=== PATIENT | male | born 1940 | race Caucasian/White ===

== ENCOUNTER → 2020-03-02 14:52 | Outpatient (CLI) | payer MEDICARE, BC, SELFPAY ==
[2020-03-02 14:16] VITALS: BMI 31.9
[2020-03-02 17:15] LABS: ALB/GLOB Ratio 1.2 RATIO (0.9-2.4); AST(SGOT) 19 U/L (15-37); Alanine Aminotransfer ALT/SGPT 29 U/L (16-61); Albumin, Serum 3.8 g/dL (3.2-5.0); Alkaline Phosphatase 63 U/L (45-117); Anion Gap 4 (5-15); BUN 20 mg/dL (7-18); BUN/Creat Ratio 17.7 RATIO (10-20); Calcium,Total 8.6 mg/dL (8.5-10.1); Chloride 107 mmol/L (98-107); Cholesterol 163 mg/dL (200); Creatinine, Serum 1.13 mg/dL (0.70-1.30); EST Glomerular Filtration Rate 67 mL/min (>60); Est Glom Filt Rate - Afr Amer 81 mL/min (>60); Globulin 3.2 g/dL (2.2-4.2); Glucose 86 mg/dL (74-106); High Density Lipoprotein 46 mg/dL; Potassium 4.4 mmol/L (3.5-5.1); Sodium Level 138 mmol/L (136-145); Triglycerides 164 mg/dL; Very Low Density Lipoprotein 33 mg/dL (5-40)
== END ==
PROVIDERS: PCP Family Medicine; Referring Provider Family Medicine; Visit Provider Family Medicine
DX: I10 Essential (primary) hypertension (principal)
CPT/HCPCS: 36415; 80053; 80061

== ENCOUNTER → 2020-10-06 11:39 | Outpatient (CLI) | payer MEDICARE, BC, SELFPAY ==
[2020-10-06 10:54] VITALS: BMI 31.9
[2020-10-06 15:09] LABS: Absolute Lymphocyte Count 3.63 X10^3/uL (0.83-4.51); Absolute Neutrophil Count 3.4 X10^3/uL (2.0-7.7); Basophil# 0.05 X10^3/uL; Basophil% 0.6 % (0-1); Eosinophils% 9.3 % (0-5); Hematocrit 43.5 % (40-54); Hemoglobin 13.6 g/dL (13.0-16.5); Lymphocyte # 3.63 X10^3/ul (0.83-4.51); Mean Corp Hgb Conc 31.3 g/dL (32-36); Mean Corpuscular Volume 92.8 fL (80-94); Mean Platelet Vol. 9.6 fl (6.2-12.0); Monocyte# 0.72 X10^3/uL; Monocyte% 8.3 % (0-10); NRBC Flagged by Analyzer 0 % (0-5); Neutrophil # 3.43 X10^3/uL (2.7-7.7); Neutrophil % 39.7 % (47-70); Platelet Count 219 K/mm3 (150-450); RBC Distribution Width CV 13.4 % (11.6-14.6); RBC Distribution Width SD 45.6 fl (35.1-43.9); Red Blood Count 4.69 M/mm3 (4.6-6.2); White Blood Count 8.6 K/mm3 (4.4-11.0)
[2020-10-06 15:21] LABS: Anion Gap 5 (5-15); BUN 24 mg/dL (7-18); BUN/Creat Ratio 19.4 RATIO (10-20); Chloride 104 mmol/L (98-107); Creatinine, Serum 1.24 mg/dL (0.70-1.30); EST Glomerular Filtration Rate 60 mL/min (>60); Est Glom Filt Rate - Afr Amer 72 mL/min (>60); Glucose 98 mg/dL (74-106); Potassium 4.5 mmol/L (3.5-5.1); Sodium Level 137 mmol/L (136-145)
== END ==
PROVIDERS: PCP Family Medicine; Referring Provider Family Medicine; Visit Provider Family Medicine
DX: K21.9 Gastro-esophageal reflux disease without esophagitis (principal); R14.0 Abdominal distension (gaseous)
CPT/HCPCS: 36415; 80048; 85025

== ENCOUNTER → 2020-10-29 12:19 | Outpatient (CLI) | payer MEDICARE, BC, SELFPAY ==
[2020-10-06 10:54] VITALS: BMI 31.9
[2020-10-14 09:07] VITALS: BMI 31.9
[2020-10-29 12:29] VITALS: BP 93/62; PULSE 64; RESP 16; O2SAT 100; BMI 25.7
== END ==
PROVIDERS: PCP Family Medicine; Referring Provider Family Medicine; Visit Provider Family Medicine
DX: R06.00 Dyspnea, unspecified (principal); E78.5 Hyperlipidemia, unspecified

== ENCOUNTER 2020-11-03 06:11 | Day surgery (SDC) | payer MEDICARE, BC, SELFPAY ==
[2020-10-14 09:07] VITALS: BMI 31.9
[2020-10-29 12:29] VITALS: BMI 25.7
--- NOTE | 2020-11-02 | IMM_PTH ---
PATIENT: TARIK RIVERA LOC: EN U#:[id number] AGE/SX: 80/M ROOM: RE11/03/[address]: Dr. Jazzmine Yoo MD : 1940 BED: DIS: 11/03/2020 SPEC #: [id number] RECD: 11/04/20 11:12 STATUS: CHRISTAL REQ #: [id number] SONNY: 11/02/20 00:[address]: Jazzmine Yoo DEPT: IMMUNOHISTOCHEMISTRY RECD BY: Yesica Mccormack ENTERED: 11/04/20 11:13 SP TYPE: IMMUNO OTHR DR: Dr. Milan Chakraborty, DO Tissues: C - Pyloric antrum Procedures: H Pylori (initial) PHYSICIAN & [place] [id number] SPECIMEN INFORMATION: Tissue Source: C ? Prepyloric biopsy Clinical Info: GERD, weight loss Specimen Number: [id number] CPT code: 48071 METHODOLOGY: Deparaffinized sections of prefer/formalin-fixed tissue or PAP/DQ stained slides are incubated with monoclonal/polyclonal antibodies/oligonucleotide probes. Localization is made via biotin free immunoperoxidase method. Appropriate controls are performed and reacted as expected. Results on target cell population are indicated in the following table: RESULTS: ANTIBODY / CLONE RESULT Block C H Pylori (polyclonal) negative These tests were developed and their performance characteristics determined by [facility]. They may not have been cleared or approved by the U.S. Food and Drug Administration. The FDA has determined that such clearance or approval is not necessary. The above immunohistochemical/dualISH markers are ordered and reviewed by the Pathologist. INTERPRETATION: C. Prepyloric biopsy: Negative for Helicobacter pylori organisms. DEBBIE:keara 11/05/2020
[2020-11-03] VITALS (8 sets, daily range): BP systolic 92–137; BP diastolic 61–75; PULSE 53–121; RESP 16; TEMP 36.1–36.4; O2SAT 95–98; BMI 21.2
--- NOTE | 2020-11-03 | EGD_PTH ---
PATIENT: TARIK RIVERA LOC: EN U#:[id number] AGE/SX: 80/M ROOM: RE11/03/[address]: Dr. Jazzmine Yoo MD : 1940 BED: DIS: 11/03/2020 SPEC #: [id number] RECD: 11/03/20 07:49 STATUS: CHRISTAL REQ #: [id number] SONNY: 11/03/20 00:[address]: Jazzmine Yoo DEPT: SURGICAL PATHOLOGY RECD BY: Yesica Mccormack ENTERED: 11/03/20 09:17 SP TYPE: EGD BIOPSY OT DR: Dr. Milan Chakraborty, DO Tissues: A - Esophageal mucous membrane B - Gastric mucous membrane C - Gastric mucous membrane Procedures: Frozen Section (charge) Special Stain Group II Surgery Specimen Level IV Alcian Blue/PAS (control) HEADER OPERATION: EGD ([facility]) PRE-OP DIAGNOSIS: GERD, weight loss TISSUE SUBMITTED: A - GE junction biopsy, FS, B - GE junction biopsy permanent, C - Prepyloric biopsy permanent FROZEN SECTION DIAGNOSIS A. GE junction, biopsy: Negative for malignancy. Ulceration and acute and chronic inflammation. :keara 11/03/2020 MICROSCOPIC DIAGNOSIS A. GE junction, biopsy: Fragments of gastroesophageal mucosa with acute and chronic inflammation. Negative for intestinal metaplasia (goblet cell metaplasia). Negative for carcinoma. See comment. B. GE junction, biopsy: Fragments of squamous epithelium with changes consistent with gastroesophageal reflux disease. Detached scant fragment of gastric epithelium, negative for intestinal metaplasia (goblet cell metaplasia). See comment. C. Prepyloric biopsy: Moderate chronic gastritis. See microscopic description and comment. SJ:keara 11/04/2020 COMMENT A. Alcian blue/PAS stain with matched control is used in the evaluation of the specimen. Mild increase of eosinophils are noted suggestive of eosinophilic esophagitis. B. Alcian blue/PAS stain with matched control is used in the evaluation of the specimen. Mild increase of eosinophils are noted suggestive of eosinophilic esophagitis. C. The results of immunohistochemistry for Helicobacter pylori will be reported separately ([id number]). Correlation with clinical, endoscopic findings and appropriate follow up are necessary. MICROSCOPIC DESCRIPTION Slides are reviewed. C. The specimen shows fragments of gastric mucosa with chronic inflammatory cell infiltrates in the lamina propria consisting of lymphocytes and plasma cells, consistent with moderate chronic gastritis. GROSS DESCRIPTION A - Received fresh for frozen section diagnosis labeled with the patient's name is a specimen designated GE junction biopsy. The specimen consists of two irregular fragments of vázquez soft tissue that in aggregate measure 0.5 x 0.2 x 0.1 cm. The specimen is totally submitted for frozen section diagnosis in one cassette. B - Received in fixative is one container labeled with the patient's name and designated GE junction biopsy, permanent. The specimen consists of multiple irregular fragments of light vázquez soft tissue that in aggregate measure 0.8 x 0.5 x 0.1 cm. The specimen is totally submitted in one cassette. C - Received in fixative is one container labeled with the patient's name and designated prepyloric biopsy. The specimen consists of one irregular fragment of light vázquez soft tissue that measures 0.3 x 0.3 x 0.1 cm. The specimen is totally submitted in one cassette. / SJ:rg 11/03/20 TC:3 CPT: 69646 x3, 54631, 72416 x2
[2020-11-03] MEDS: Lactated Ringers 1,000 ML 100 ML IV (06:48)
--- NOTE | 2020-11-03 07:26 | PCM.HP.BLA ---
History and Physical Date of Admission: 11/03/20 Date of Service: 10/14/20 MR#:[id number] Acct:[id number] Name: TARIK RIVERA :1940 Age/Sex: 80/M Provider:Dr. Jazzmine Yoo MD Location:[facility] Status:Signed Rep #:[id number] Intake Vital Signs 10/14/20 09:05 10/14/20 09:07 Height 6 ft 1 in Weight: 200 lb BMI 26.4 31.9 BP 114/78 Blood Pressure Location Rt brachial Position Sitting Respiration 16 Pulse 67 Pulse Source Monitor Temp 97.3 F L Temp Source Temporal Pulse Oximetry (%) 99 Oxygen Delivery Method room air Intake Visit Reasons: EGD, WEIGHT LOSS Chief Complaint: Reflux and wt loss Public Transit Specialist Required: No Is patient in pain?: No Allergies No Known Allergies Allergy (Verified 10/14/20 09:06) Medications diphenhydramine HCl 50 mg capsule 50 mg PO QHS PRN cap 03/18/19 [History Confirmed 10/14/20] apixaban 5 mg tablet 5 mg PO BID #180 tab 10/21/19 [Rx Confirmed 10/14/20] metoprolol tartrate 50 mg tablet 50 mg PO BID #180 tab 10/21/19 [Rx Confirmed 10/14/20] simvastatin 20 mg tablet 20 mg PO QPM #90 tab 10/21/19 [Rx Confirmed 10/14/20] lisinopril 5 mg tablet 5 mg PO QDAY #90 tab 03/02/20 [Rx Confirmed 10/14/20] omeprazole 40 mg capsule,delayed release 40 mg PO DAILY #90 cap 10/06/20 [Rx Confirmed 10/14/20] PFSH Medical History (Updated 10/06/20 @ 12:[address] Milan Chakraborty DO) Essential hypertension Hyperlipemia Paroxysmal A-fib Surgical History (Updated 10/14/20 @ 09:03 by Mandy Guzman) Cataracts, bilateral History of bilateral hip replacements History of right knee joint replacement history of right testicle removed History of tonsillectomy Normal colonoscopy Family History (Updated 10/14/20 @ 09:04 by Mandy Guzman) Father Heart disease Mother Heart disease Sister Breast cancer Brother CVA (cerebral vascular accident) Social History Smoking Status: Former smoker how long ago did patient quit smokin alcohol intake: current alcohol intake frequency: 0-2 drinks per day Alcohol type: hard liquor substance use type: does not use caffeine: No what type of physical activity do you participate in: walking, bicycling and weight training frequency: 3-4 times per week HPI HPI HPI: TARIK RIVERA, is a 80 M who presents to the office today for reflux/weight loss. Patient states since April he is lost about 25 pounds. Patient also noticed increased reflux symptoms at that time patient did stop his 1-2 alcoholic drinks daily as he read that this could make this worse. Patient's never had previous EGD. Patient did try Nexium 20 mg p.o. [id number] daily 1 month ago and currently is put on omeprazole 40 mg p.o. daily by his PCP. Patient has not noticed much change with either of these. Patient states he eats some breakfast and lunch but does not really eat dinner as this has helped him be able to sleep he states he has increased belching/flatus and he will still get some bloating which caused some uncomfortable feeling in his abdomen. Patient states currently he may be eating a bit better than he was previously. Patient has had both doses of the Covid vaccine. Patient's last colonoscopy was about 3 years ago patient states he has 1 about every 3 years he has had precancerous polyps removed at that time. Patient is on Eliquis due to A. fib. Patient did have an episode of double vision while waiting in the office which resolved within minutes. Patient denies ever having this issue previously ROS General General: Yes weight change; No appetite, fatigue, colon cancer, breast cancer or weakness HEENT HEENT: No difficulty swallowing, eye injury, eye surgery, swollen glands or hoarseness Endo Endocrine: No thyroid disease, diabetes mellitus, thyroid cancer, Hair loss, heat intolerance or cold intolerance Skin Skin: No rash or changing moles Musc Musculoskeletal: No back problems, arthritis, rheumatoid arthritis, gout or joint pain Cardio Cardiovascular: Yes atrial fibrillation and high blood pressure; No murmur, pacemaker, heart disease, heart attack, heart stent, palpitations, shortness of breat with exertion or chest pain Psych Psychiatric: No depression, anxiety or hearing voices Resp Respiratory: No shortness of breath, No sleep apnea, No cough, No COPD, No asthma, No emphysema and No wheezing Gastro Gastrointestinal: No abdominal pain, No nausea or vomiting, No diarrhea, No constipation, No blood in stool, Yes acid reflux, No hemorrhoids, No ulcers, No gallbladder problem and No black,tarry stools Fadi Hematologic: Yes blood thinners, No blood disorders, No bleeding, No anemia and No blood clots Neuro Neurologic: No weakness Exam Const General: cooperative, healthy appearing, comfortable and no acute distress Neck Neck: normal visual inspection Resp Effort & Inspection: normal respiratory effort Cardio Rate: regular rate GI Inspection: non-distended Palpation: soft, no guarding and nontender Skin General: no rashes or lesions noted Neuro General: patient oriented x3 Psych Affect: normal affect COVID (Procedure Consent) Procedure Criteria Procedure Criteria: Yes Elective The surgeon/proceduralist and patient have discussed in detail the risk of exposure to and/or potential harm posed by the COVID-19 virus with having a surgery/procedure at this time versus the risk of delaying the surgery/procedure. It is not possible to know either the risk of delaying the surgery or procedure or chance of getting an infection with perfect accuracy, but a joint decision was made between the patient and the surgeon/proceduralist to proceed at this time with the scheduled surgery/procedure as indicated on the consent form. Assessment and Plan Assessment and Plan (1) Gastroesophageal reflux disease: Status: Acute (2) Weight loss, non-intentional: Status: Acute (3) Double vision with both eyes open: Plan - Dr. Jazzmine Yoo MD: Did offer patient colonoscopy as well have patient elected to just have the EGD as he is had multiple colonoscopies since last one was 3 years ago. Patient states he was not eating as much due to reflux and heartburn. I have discussed the above with the patient. I have offered the patient EGD for evaluation. Schedule on 11/03 per patient request I have explained the risks/benefits of the procedure and described the procedure. I have discussed the risks with the patient, including but not limited to: infection, bleeding, perforation of the GI tract requiring emergency surgery, inability to complete the procedure, injury to any internal organs, complications of anesthesia, etc. - the patient understands and agrees to proceed. I have answered all the patient's questions to the patient's satisfaction and the patient has no further questions. The patient has been given instructions for the colon cleansing preparation. Did recommend patient if he does have another episode of double vision to check with his PCP as patient only had this episode for minutes and then it resolved in the office. Patient states he only had coffee this morning.. Jazzmine Yoo M.D. Pager: [phone] [facility] [address] [place] [address], [facility], [address] [place] [id number] Office: [phone] Plan Details Other Orders: Orders: EGD 10/14/20 Coding Level of Care Code Off vis,new,level 3 Diagnoses Gastroesophageal reflux disease K21.9 Weight loss, non-intentional R63.4 Double vision with both eyes open H53.2 10/15/20 0907<Electronically signed by Jazzmine Yoo MD>Date Jazzmine Yoo MD
--- NOTE | 2020-11-05 15:09 | OP.CCLET_ITS ---
11/03/2020 Milan Chakraborty Re : Upper GI endoscopy procedure for Tyler Holland Dear Dr. Chakraborty This procedure was performed on Tuesday, November 03, 2020. My impressions and recommendations are as follows: Impressions : - Z-line variable, 42 cm from the incisors. Biopsied. - A large amount of food (residue) in the stomach. - Erythematous mucosa in the prepyloric region of the stomach. Biopsied. Recommendations : - Discharge patient to home. - Resume previous diet. - Continue present medications. - Await pathology results. - Repeat upper endoscopy at appointment to be scheduled because the preparation was poor. - depending on bx results. may also need gastric emptying study My findings are described in the full procedure note, which is enclosed. If I can be of further assistance, please feel free to contact me at Doctor phone number(s): , Work: . Sincerely, MD Jazzmine Dixon MD 11/03/2020 8:00:52 AM This report has been signed electronically.
--- NOTE | 2020-11-05 15:09 | OP.EGD_ITS ---
Patient Name: Tyler Holland Procedure Date: 11/03/2020 7:23 AM Date of : 1940 Age: 80 Procedure: Upper GI endoscopy Indications: Suspected esophageal reflux, Weight loss Providers: Jazzmine Yoo MD Referring MD: Milan Chakraborty Medicines: Monitored Anesthesia Care Patient Profile: This is a 80 year old male. Complications: No immediate complications. Procedure: Pre-Anesthesia Assessment: - Prior to the procedure, a History and Physical was performed, and patient medications and allergies were reviewed. The patient's tolerance of previous anesthesia was also reviewed. The risks and benefits of the procedure and the sedation options and risks were discussed with the patient. All questions were answered, and informed consent was obtained. Prior Anticoagulants: The patient has taken Eliquis (apixaban), last dose was 2 days prior to procedure. ASA Grade Assessment: Per anesthesia. After reviewing the risks and benefits, the patient was deemed in satisfactory condition to undergo the procedure. After obtaining informed consent, the endoscope was passed under direct vision. Throughout the procedure, the patient's blood pressure, pulse, and oxygen saturations were monitored continuously. The gastroscope was introduced through the mouth, and advanced to the prepyloric region, stomach. The upper GI endoscopy was technically difficult and complex due to poor endoscopic visualization. The patient tolerated the procedure well. Scope In: 7:35:39 AM Scope Out: 7:47:26 AM Total Procedure Duration Time 0 hours 11 minutes 47 seconds Findings: The Z-line was variable and was found 42 cm from the incisors. Biopsies were taken with a cold forceps for histology. bx for frozen and permanent taken A large amount of food (residue) was found in the gastric fundus. Unable to see well due to fibrous debris at pylorus and large amount at fundus moderately erythematous mucosa was found in the prepyloric region of the stomach. Biopsies were taken with a cold forceps for histology. Biopsies were taken with a cold forceps for Helicobacter pylori cultures. Impression: - Z-line variable, 42 cm from the incisors. Biopsied. - A large amount of food (residue) in the stomach. - Erythematous mucosa in the prepyloric region of the stomach. Biopsied. Recommendation: - Discharge patient to home. - Resume previous diet. - Continue present medications. - Await pathology results. - Repeat upper endoscopy at appointment to be scheduled because the preparation was poor. - depending on bx results. may also need gastric emptying study Procedure Code(s): --- Professional --- 11687, 52, Esophagogastroduodenoscopy, flexible, transoral; with biopsy, single or multiple Diagnosis Code(s): --- Professional --- K22.8, Other specified diseases of esophagus K31.89, Other diseases of stomach and duodenum R63.4, Abnormal weight loss CPT copyright 2017 [employer]. All rights reserved. The codes documented in this report are preliminary and upon drywall stripper helper review may be revised to meet current compliance requirements. MD Jazzmine Dixon MD 11/03/2020 8:00:52 AM This report has been signed electronically. Number of Addenda: 0 Note Initiated On: 11/03/2020 7:23 AM
== END 2020-11-03 08:57 ==
LOC: EN 06:14 → AC 06:55
PROVIDERS: PCP Family Medicine; Referring Provider Family Medicine; Visit Provider Surgery
PROC: 0DJ08ZZ Inspection of Upper Intestinal Tract, Via Natural or Artificial Opening Endoscopic (ICD-10-PCS; CPT 43235; principal; 2020-11-03 07:25)
DX: K22.8 Other specified diseases of esophagus (principal); R63.4 Abnormal weight loss; K31.89 Other diseases of stomach and duodenum; H53.2 Diplopia; I10 Essential (primary) hypertension; E78.5 Hyperlipidemia, unspecified; I48.0 Paroxysmal atrial fibrillation; Z96.651 Presence of right artificial knee joint; Z87.891 Personal history of nicotine dependence; K21.9 Gastro-esophageal reflux disease without esophagitis
CPT/HCPCS: 43239; 88305; 88313; 88331; 88342; J7120; J2405

== ENCOUNTER → 2020-11-16 06:32 | Outpatient (CLI) | payer MEDICARE, BC, SELFPAY ==
[2020-11-08 09:01] VITALS: BMI 24.9
--- NOTE | 2020-11-16 18:23 | STRESSREP ---
Stress Test Report Exercise myocardial perfusion stress test. 80-year-old man with a history of atrial fibrillation. Stress protocol: Resting EKG demonstrates atrial fibrillation with a rate of 81 bpm resting blood pressure is 114/68 mmHg. The patient exercised according to the regular Dave protocol for total duration of 3 minutes. The maximum heart rate attained was 173 bpm which was 122% of maximum predicted heart rate the maximum workload was 4.6 metabolic equivalents. At rest there were no ST or T wave changes noted suggest ischemia at peak infusion and exercise nonspecific ST changes were noted. No clinical angina was noted the test was terminated due to shortness of breath. The final blood pressure was 114/68 mmHg. Myocardial perfusion protocol. 11.1 mCi of technetium 99m sestamibi was injected at rest. The patient exercised according to regular Dave protocol for 3 minutes and at peak exercise 32.6 mCi of technetium 99m sestamibi was injected stress images were obtained stress and rest images were reconstructed and compared in the short axis vertical long and horizontal long axis. Gated images were also obtained to Perfusion SPECT analysis: Review of the stress images demonstrate normal uptake of tracer noted in all areas of the myocardium. The resting images similarly demonstrate normal uptake of tracer noted in all areas of the myocardium. No areas of reversibility are noted suggest ischemia no previous infarct is noted. Gated SPECT analysis: The gated ejection fraction is noted to be 61%. Conclusion: Exercise stress test with no EKG criteria for ischemia at a low workload. Atrial fibrillation noted. Mild to moderate function aerobic impairment. Nuclear images demonstrating no obvious ischemia present.
== END ==
PROVIDERS: PCP Family Medicine; Referring Provider Nurse Practitioner Family; Visit Provider Nurse Practitioner Family
DX: I48.0 Paroxysmal atrial fibrillation (principal); I10 Essential (primary) hypertension; R06.00 Dyspnea, unspecified; I20.8 Other forms of angina pectoris
CPT/HCPCS: 78452; 93017; A9500; A4216

== ENCOUNTER → 2020-11-25 13:06 | Outpatient (CLI) | payer MEDICARE, BC, SELFPAY ==
[2020-11-08 09:01] VITALS: BMI 24.9
[2020-11-23 16:09] VITALS: BMI 24.9
--- NOTE | 2020-11-25 13:07 | ECHOCS_ITS ---
Version 2 Reason For Study: DYSPNEA/SOB Procedure This was a 2D Doppler, Color Flow transthoracic echocardiogram. The study was technically difficult. Exam performed in department. Left Ventricle Normal LV size. Left ventricular systolic function is normal. The estimated ejection fraction is 55 %. No regional wall motion abnormalities noted. Right Ventricle Normal RV size. Normal systolic function. Atria The left atrium is moderately enlarged. Normal right atrium. Bubble contrast study negative for right to left interatrial shunt. Mitral Valve Posterior leaflet mitral valve prolapse. Mild-Moderate (1-2+) eccentric mitral valve insufficiency. Tricuspid Valve Normal tricuspid valve. Mild tricuspid valve insufficiency. Aortic Valve Trisinus/trileaflet aortic valve. Mild focal aortic valve calcification. Pulmonic Valve Normal pulmonic valve. Mild (1+) pulmonic valve insufficiency. Great Vessels Normal aortic root. The pulmonary artery is normal size. Normal inferior vena cava. Pericardium/Pleural No pericardial effusion. Medication 22 gauge I.V. with prn adaptor inserted into right arm. Diluted definity 5ml given slow IV push to enhance endocardial definition. MMode/2D Measurements & Calculations LVIDd: 4.7 cm IVSd: 0.97 cm Ao root diam: 3.3 cm LVIDs: 3.7 cm LVPWd: 1.0 cm RVDd: 4.0 cm FS: 21.4 % LAV(MOD-bp): 90.7 ml LVAd ap4: 37.1 cm2 SV(MOD-sp4): 65.8 ml LAV(MOD-bp) Indexed: 42.4 ml/m2 LVLd ap4: 8.4 cm LAV(MOD-sp2): 78.9 ml EDV(MOD-sp4): 133.5 ml LAV(MOD-sp4): 88.8 ml EDV(sp4-el): 139.0 ml LVAs ap4: 24.3 cm2 LVLs ap4: 7.5 cm ESV(MOD-sp4): 67.7 ml ESV(sp4-el): 66.7 ml EF(MOD-sp4): 49.3 % EF(sp4-el): 52.0 % SV(sp4-el): 72.3 ml LA A4 area: 26.1 cm2 LA dimension(2D): 5.6 cm RA A4 area: 20.3 cm2 Doppler Measurements & Calculations MV E max jayme: 100.8 cm/sec Ao V2 max: 141.4 cm/sec LV V1 max: 79.8 cm/sec Ao max P.0 mmHg LV V1 max P.6 mmHg PA V2 max: 97.5 cm/sec TR max jayme: 277.1 cm/sec PI dec slope: 181.8 cm/sec2 TR max P.7 mmHg ECHO/Echo Complete W/ Contrast Interpretation Summary Normal LV size. Left ventricular systolic function is normal. The estimated ejection fraction is 55 %. Bubble contrast study negative for right to left interatrial shunt. Posterior leaflet mitral valve prolapse. Mild-Moderate (1-2+) eccentric mitral valve insufficiency. The left atrium is moderately enlarged. Ordering Physician: August Villagomez/Haider Sanchez Referring Physician: JOSEPH ARAUZ Performed By: Susan Cormier RDCS
[2020-11-25 17:42] LABS: BNP,B-Type NATRIURETIC PEPTIDE 219.6 pg/mL (0-100)
== END ==
PROVIDERS: PCP Family Medicine; Referring Provider Nurse Practitioner Family; Visit Provider Nurse Practitioner Family
DX: I48.0 Paroxysmal atrial fibrillation (principal); R06.00 Dyspnea, unspecified; I10 Essential (primary) hypertension; E78.2 Mixed hyperlipidemia
CPT/HCPCS: 36415; 83880; 93225; 93226; 93306; Q9957; A4216; C8929; J3490

== ENCOUNTER → 2020-12-07 11:59 | Outpatient (CLI) | payer MEDICARE, BC, SELFPAY ==
[2020-12-02 14:32] VITALS: BMI 24.9
--- NOTE | 2020-12-07 12:12 | NM_ITS ---
CLINICAL: 80-year-old male with history of abdominal bloating and clinical gastroparesis. SEMI-SOLID PHASE 99m Tc SULFUR COLLOID GASTRIC EMPTYING STUDY COMPARISON: None available FINDINGS: The patient was administered 1.0 mCi of 99m Tc sulfur colloid mixed with oatmeal and consumed per os. Image acquisitions in the anterior-posterior projections for a total of 60 minutes. There is prompt visualization of the stomach. There is no gastroesophageal reflux identified. There is no definitive emptying visualized. The T ? linear fit was calculated to be > 400 minutes, (Normal: 12-56 minutes). NM/Gastric Emptying Study IMPRESSION: 1. MARKEDLY ABNORMAL 99m Tc sulfur colloid semi-solid phase (oatmeal) gastric emptying imaging examination. A. There is significant and severe delayed semi-solid phase gastric emptying compared to normal controls with no definitive emptying visualized. (Georgie et al, J Nucl Med Tech 38: 186, 2010). Electronically Signed: Tonny Arrington DO at 22:37 EDT Tel , Service support ,
== END ==
PROVIDERS: PCP Family Medicine; Referring Provider Surgery; Visit Provider Surgery
DX: K31.89 Other diseases of stomach and duodenum (principal)
CPT/HCPCS: 78264; A9541

== ENCOUNTER → 2020-12-08 11:41 | Outpatient (CLI) | payer MEDICARE, BC, SELFPAY ==
[2020-12-02 14:32] VITALS: BMI 24.9
--- NOTE | 2020-12-08 11:42 | CT_ITS ---
STUDY: CT ABDOMEN AND PELVIS WITH CONTRAST REASON FOR EXAM: Male, 80 years old. Delayed gastric emptying/ food retained in stomach RADIATION DOSAGE (If Supplied By Facility): CTDIvol = ( 17.50 ) mGy, DLP = ( 998.30 ) mGycm TECHNIQUE: Transaxial images were obtained from the dome of the diaphragm to the symphysis pubis with oral contrast. Oral and amp; IV Gastrografin and amp; 100mL Isovue-300 was administered. Sagittal and coronal images were reconstructed. Individualized dose optimization techniques were used for this CT. COMPARISON: None. FINDINGS: The visualized lung bases are unremarkable. The visualized portions of the heart are within normal limits. There is decreased attenuation of the liver consistent with steatosis. There is focal dilatation of the common bile duct with a transverse dimension of 1.7 cm. Normal spleen. Normal pancreas. Normal bilateral adrenal glands. Normal right kidney. Normal left kidney. Moderate degree of gastric dilatation with air-fluid retained food particles and air. There is evidence of a 5 cm x 3.8 cm soft tissue mass in the region of the pylorus of the stomach. Normal small intestine. There are multiple colonic diverticula consistent with diverticulosis. The appendix is visualized and appears normal. There is diffuse atherosclerotic calcification of the abdominal aorta and its major visceral branches, without a demonstrated aneurysm. Normal inferior vena cava. Normal retroperitoneum. Normal urinary bladder. Normal abdominal wall. There are diffuse degenerative changes of the visualized lumbar spine. The patient is status post bilateral hip replacement. CT/Abdomen/Pelvis WITH Contrast IMPRESSION: Marked degree of gastric dilatation with residual fluid and food particles down to the region of the pylorus. There is a 5 cm x 3.7 soft tissue mass in the lower region. Dilated common bile duct. Fatty attrition of the liver. Electronically Signed: Edmund Sauceda MD at 13:27 EDT , Service support ,
[2020-12-08 13:06] LABS: CREATININE FINGERSTICK 1.3 mg/dL (0.70-1.30)
== END ==
PROVIDERS: PCP Family Medicine; Referring Provider Surgery; Visit Provider Surgery
DX: K30 Functional dyspepsia (principal); K31.89 Other diseases of stomach and duodenum
CPT/HCPCS: 74177; Q9967; A4216

== ENCOUNTER 2020-12-08 13:50 | Emergency (ER) | payer MEDICARE, BC, SELFPAY ==
[2020-12-02 14:32] VITALS: BMI 24.9
[2020-12-08 13:51] VITALS: BP 116/76; PULSE 94; RESP 15; TEMP 36.4; O2SAT 96; BMI 23.7
[2020-12-08 13:52] VITALS: BP 116/76; PULSE 94; RESP 15; TEMP 36.4; O2SAT 96
--- NOTE | 2020-12-08 14:30 | NURSING ---
CALLED HIGHLAND DAHIANA , AT [facility]
--- NOTE | 2020-12-08 14:30 | NURSING ---
CALLED [facility] TALKED TO DR MICHAEL THEY ARE FULL
--- NOTE | 2020-12-08 14:37 | EDS_ITS ---
HPI History of Present Illness Chief Complaint: Abd Pain Narrative Narrative: Patient presents with abdominal pain he has not had abdominal pain for the past 2 weeks, he went to see surgery and had an outpatient CT which showed 5 x 3.7 cm soft tissue mass in the lower region of the pylorus with a marked degree of gastric dilation with residual fluid and food particles. 1 he was sent here to be transferred for further surgical care, apparently we do not have the capabilities for this at this facility. [facility] Medical History Alcohol use Cancer Cardiology follow-up encounter Essential hypertension Former smoker Gastric reflux High cholesterol History of edema History of rheumatic fever History of stress test Hx of echocardiogram Hyperlipemia Paroxysmal A-fib Shortness of breath on exertion Wears glasses Wears hearing aid Weight loss Home Medications apixaban 5 mg tablet 5 mg PO BID #180 tab 10/20/20 [Rx Last Taken Unknown] simvastatin 20 mg tablet 20 mg PO QPM #90 tab 10/20/20 [Rx Last Taken 11/03/20] metoprolol tartrate 50 mg PO BID 10/26/20 [History Last Taken 11/03/20] pantoprazole 40 mg tablet,delayed release 40 mg PO DAILY #30 tab 12/02/20 [Rx Last Taken Unknown] diphenhydramine HCl 50 mg PO QHS 12/08/20 [History Last Taken Unknown] Allergy/AdvReac Type Severity Reaction Status Date / Time No Known Allergies Allergy Verified 12/08/20 13:53 Family History Father Heart disease Mother Heart disease Sister Breast cancer Brother CVA (cerebral vascular accident) Surgical History Cataracts, bilateral History of bilateral hip replacements History of endoscopy (~11/2020) History of right knee joint replacement history of right testicle removed History of tonsillectomy Normal colonoscopy Social History Smoking Status: Former smoker how long ago did patient quit smokin years ago alcohol intake: former details: Quit in May 2020 substance use type: does not use caffeine: No what type of physical activity do you participate in: walking, bicycling and weight training frequency: 3-4 times per week ROS ROS ED ROS Narrative Past medical history: Reviewed, includes arthritis, reflux disease, A. fib on apixaban, hypercholesterolemia, hypertension Medications: Reviewed Social history: Noncontributory Review of systems: All systems negative except as indicated General: No fever Eyes: No visual changes ENT: No upper airway congestion, normal voice Neck: No neck pain Cardiovascular: No chest pain Respiratory: No shortness of breath or cough Gastrointestinal: Abdominal pain mostly epigastric with some nausea and vomiting. Genitourinary: No dysuria Musculoskeletal: Denies myalgias no difficulty with ambulation Skin: No rash Neurological: No memory loss, confusion or any focal weakness Psych: No recent behavioral changes Hematologic: No easy bleeding or easy bruising EXAM Physical Exam Narrative Exam Narrative: Physical exam General: Patient is relatively comfortable sitting in bed Head: Normocephalic, Atraumatic Eyes: Conjunctiva not pale ENT: Moist mucous membranes Neck: Supple, Nontender, No lymphadenopathy Cardiovascular: Regular rate, Regular rhythm Respiratory: No distress, CTA bilaterally Abdomen: Soft minimal epigastric tenderness, it is nondistended. There is no guarding or rebound. Back: Nontender, Normal Inspection. Negative for: CVA tenderness Extremities: Nontender, No edema Skin: Normal color, No rash Neurological: Alert, Normal Strength, Normal Sensation Const Vital Signs: 12/08/20 13:51 12/08/20 13:52 Temperature 97.6 F L 97.6 F L Temperature Source Temporal Temporal Pulse Rate 94 94 Respiratory Rate 15 15 Blood Pressure 116/76 116/76 Blood Pressure Mean 89 89 Pulse Ox 96 96 Oxygen Delivery Method Room Air Room Air MDM MDM MDM Narrative Medical decision making narrative: I discussed with [facility] and they accepted the patient. He will be safely transferred there. NG tube will be placed. Discharge Plan Triage Chief Complaint: Abd Pain ED Provider: Nitin Espinoza Dx/Rx/DC Orders Prescriptions: No Action pantoprazole 40 mg tablet,delayed release (DR/EC) 40 mg PO DAILY Qty: 30 RF: 3 metoprolol tartrate 50 mg tablet 50 mg PO BID RF: 0 diphenhydramine HCl 50 mg Tablet 50 mg PO QHS RF: 0 apixaban 5 mg tablet 5 mg PO BID Qty: 180 RF: 3 Hold Instructions: Resume on 11/04/20. simvastatin 20 mg tablet 20 mg PO QPM Qty: 90 RF: 3 Primary Care Provider: Milan Chakraborty
--- NOTE | 2020-12-08 14:49 | NURSING ---
DR HOLGUIN REQUESTED ED TO ED. DR MICHAEL TALKING TO ER DOCTOR
--- NOTE | 2020-12-08 15:12 | NURSING ---
CALLED [facility], ETA IS 90 TO 2 HRS. ASKED TO OUTSOURCE.
[2020-12-08] MEDS: Lidocaine 4% 5 ML Ampul 2 ML INHALATION (15:19)
[2020-12-08 15:23] LABS: Absolute Lymphocyte Count 2.81 X10^3/uL (0.83-4.51); Absolute Neutrophil Count 4.5 X10^3/uL (2.0-7.7); Basophil# 0.03 X10^3/uL; Basophil% 0.3 % (0-1); Eosinophils% 5.7 % (0-5); Hematocrit 40.2 % (40-54); Hemoglobin 12.9 g/dL (13.0-16.5); Lymphocyte # 2.81 X10^3/ul (0.83-4.51); Mean Corp Hgb Conc 32.1 g/dL (32-36); Mean Corpuscular Hgb 28.9 pg (27.0-32.0); Mean Corpuscular Volume 90.1 fL (80-94); Mean Platelet Vol. 8.8 fl (6.2-12.0); Monocyte# 0.96 X10^3/uL; Monocyte% 10.9 % (0-10); NRBC Flagged by Analyzer 0 % (0-5); Neutrophil # 4.46 X10^3/uL (2.7-7.7); Neutrophil % 50.9 % (47-70); Platelet Count 265 K/mm3 (150-450); RBC Distribution Width CV 15.6 % (11.6-14.6); RBC Distribution Width SD 51.4 fl (35.1-43.9); Red Blood Count 4.46 M/mm3 (4.6-6.2); White Blood Count 8.8 K/mm3 (4.4-11.0)
--- NOTE | 2020-12-08 15:34 | NURSING ---
[facility] OUTSOURCED PATIENT TO [facility]. ETA IS 15 MIN
[2020-12-08 15:38] LABS: ALB/GLOB Ratio 1.1 RATIO (0.9-2.4); AST(SGOT) 17 U/L (15-37); Alanine Aminotransfer ALT/SGPT 20 U/L (16-61); Albumin, Serum 3.7 g/dL (3.2-5.0); Alkaline Phosphatase 68 U/L (45-117); Anion Gap 8 (5-15); BUN 24 mg/dL (7-18); BUN/Creat Ratio 14.8 RATIO (10-20); Calcium,Total 9.6 mg/dL (8.5-10.1); Chloride 94 mmol/L (98-107); Creatinine, Serum 1.62 mg/dL (0.70-1.30); EST Glomerular Filtration Rate 44 mL/min (>60); Est Glom Filt Rate - Afr Amer 53 mL/min (>60); Estimated Creatinine Clearance 41.79 ml/min; Globulin 3.4 g/dL (2.2-4.2); Glucose 91 mg/dL (74-106); Potassium 3.8 mmol/L (3.5-5.1); Protein, Total 7.1 g/dL (6.4-8.2); Sodium Level 133 mmol/L (136-145)
--- NOTE | 2020-12-08 16:00 | RAD_ITS ---
STUDY: X-RAY - ABDOMEN/PELVIS REASON FOR EXAM: Male, 80 years old. ng tube -- KUB with both diaphragms for NG/OG Verification TECHNIQUE: Frontal view COMPARISON: None. FINDINGS: Normal visualized lung bases. There is an unremarkable bowel gas pattern. There is no demonstrated free abdominal air. Nasogastric tube with tip in the stomach. Normal soft tissue structures. Degenerative vertebral changes. RAD/Abdomen Single View (Portable) IMPRESSION: Nasogastric tube in the stomach. Electronically Signed: Yovanny Adhikari DO at 16:49 EDT Tel [phone], Service support ,
[2020-12-08 16:04] VITALS: BP 128/83; PULSE 82; RESP 16; O2SAT 95
== END 2020-12-08 16:38 | disposition other institution (70) ==
PROVIDERS: Emergency Provider Emergency Medicine; PCP Family Medicine
DX: R10.9 Unspecified abdominal pain (principal); I10 Essential (primary) hypertension; I48.0 Paroxysmal atrial fibrillation; E78.5 Hyperlipidemia, unspecified; E78.00 Pure hypercholesterolemia, unspecified; K21.9 Gastro-esophageal reflux disease without esophagitis; Z87.891 Personal history of nicotine dependence; Z79.899 Other long term (current) drug therapy
CPT/HCPCS: 74018; 74177; 80053; 85025; 94640; 99285; Q9967; A4216

== ENCOUNTER 2020-12-21 17:30 | Inpatient (IN) | payer MEDICARE, BC, SELFPAY ==
[2020-12-21 18:14] VITALS: BP 97/56; PULSE 76; RESP 16; TEMP 36.1; O2SAT 97; BMI 24.4
[2020-12-21] MEDS: Atorvastatin Calcium 10 MG Tablet PO (22:47)
[2020-12-21] MEDS: DiphenhydrAMINE 25 MG Capsule 50 MG PO (22:47)
--- NOTE | 2020-12-21 22:58 | HP.PCM_ITS ---
[facility] - General General Date of Admission: 12/21/20 HPI Narrative 12/08/2020 TARIK RIVERA, is a 80 Male who presents to [facility] Emergency Department with abdominal pain. Abdominal pain x 2 weeks, nausea, vomiting, inability to digest foods. CT abdomen/pelvis showed 5cm x 3.7cm mass lower region of pylorus with marked degree of gastric dilation with residual fluid, food particles. NG tube placed. Transfer to [facility] for further care. 12/08/2020 Admit to [facility]. Increasing nausea, vomiting, he had to stand up to digest food. Gastric emptying test abnormal. NPO, IV fluids. Consult GI for EGD, biopsy of pyloric mass. Tube feed for nutrition. 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 12/11/2020 Interventional radiology NG tube placement. 12/14/2020 Laparoscopic partial gastrectomy with gastrojejunostomy and gastrojejunostomy tube placement. Tube feed via J portion of GJ tube. G portion clamped, but maybe put to suction for nausea. PRN pain, nausea control. PPI twice daily. 12/21/2020 Admit to TCU with debility, here for rehabilitation, strengthening, prior to discharge home alone. [facility] Medical History (Updated 12/21/20 @ 23:[address] Rafael Shepard MD) Alcohol use Cancer Cardiology follow-up encounter Essential hypertension Former smoker Gastric reflux High cholesterol History of edema History of rheumatic fever History of stress test Hx of echocardiogram Hyperlipemia Paroxysmal A-fib Shortness of breath on exertion Wears glasses Wears hearing aid Weight loss Home Medications metoprolol tartrate 50 mg PO BID 10/26/20 [History Last Taken 11/03/20] diphenhydramine HCl 50 mg PO QHS 12/08/20 [History Last Taken Unknown] apixaban 5 mg PO BID 12/21/20 [History Last Taken Unknown] nutritional supplements [Peptamen 1.5] 110 ml FEEDING TUBE QHS 12/21/20 [History Last Taken Unknown] oxycodone 5 mg PO Q6H PRN 12/21/20 [History Last Taken Unknown] pantoprazole 40 mg PO DAILY 12/21/20 [History Last Taken Unknown] simvastatin 20 mg PO QPM 12/21/20 [History Last Taken Unknown] Allergy/AdvReac Type Severity Reaction Status Date / Time No Known Allergies Allergy Verified 12/08/20 13:53 Family History Father Heart disease Mother Heart disease Sister Breast cancer Brother CVA (cerebral vascular accident) Surgical History (Updated 12/21/20 @ 23:[address] Rafael Shepard MD) Cataracts, bilateral History of bilateral hip replacements History of endoscopy (~11/2020) History of partial gastrectomy History of right knee joint replacement history of right testicle removed History of tonsillectomy Normal colonoscopy Social History Smoking Status: Former smoker how long ago did patient quit smokin years ago alcohol intake: former details: Quit in May 2020 substance use type: does not use caffeine: No what type of physical activity do you participate in: walking, bicycling and weight training frequency: 3-4 times per week ROS Constitutional Constitutional: Denies chills, fever(s) or weight gain ENT HEENT: Denies headache(s), nasal congestion or nasal discharge Cardiovascular Cardiovascular: Denies chest pain or palpitations Respiratory/Chest Respiratory/Chest: Denies cough, excessive phlegm production or shortness of breath with exertion Gastrointestinal Gastrointestinal: Denies abdominal pain, nausea or vomiting Genitourinary Genitourinary: Denies dysuria Musculoskeletal Musculoskeletal: Denies joint pain or joint swelling Integumentary Integumentary: Denies rash or wounds Neurologic Neurologic: Denies focal weakness, numbness or tingling Psychiatric Psychiatric: Reports auditory hallucinations; Denies anxiety, depression, homicidal ideation or suicidal ideation Vital Signs Vital Signs Vital Signs: 12/21/20 18:14 Temperature 97.0 F L Temperature Source Temporal Pulse Rate 76 Respiratory Rate 16 Blood Pressure 97/56 L Blood Pressure Mean 69 Blood Pressure Source Monitor Blood Pressure Position Standing Blood Pressure Location Left Arm Pulse Ox 97 Oxygen Delivery Method Room Air Weight Weight: 84.056 kg Body Mass Index (BMI) 24.4 Physical Exam Const alert and oriented x3 General Appearance: cooperative HEENT normocephalic Eyes PERRL and EOMs intact bilaterally Neck supple, no JVD and no carotid bruits Resp normal respiratory effort, normal air movement and clear to auscultation bilaterally Cardio regular rate and regular rhythm GI normal to inspection, nondistended, normoactive bowel sounds, non-tender and non-distended GI Narrative: GJ tube present. Extremity normal capillary refill General Extremity: Negative for edema Skin no rashes or lesions noted General Skin Exam: no breakdown Psych affect normal Appearance: appropriate Assessment & Plan Assessment/Plan (1) History of partial gastrectomy: (2) Debility: (3) Gastric outlet obstruction: (4) Gastrointestinal stromal tumor (GIST): (5) Alcohol dependence: (6) Hypertension: (7) Gastroesophageal reflux disease: (8) Hyperlipidemia: (9) Atrial fibrillation: PLAN: 80 year old male with below past medical history hospitalized for gastric outlet obstruction, underwent partial gastrectomy with GJ tube placement, biopsy showed GIST, admitted to TCU with debility, here for rehabilitation, strengthening, prior to discharge home alone. * Debility - PT/OT. * Pain - Tylenol 1000MG Q6H PRN pain (1-5), Oxycodone 5MG Q6H PRN pain (6-10). * Bowel - Miralax 17GM daily, Senna/colace 1 tablet twice daily, Dulcolax 10MG daily PRN. * Adult immunization - Administer prevnar 13, pneumovax 23, Fluzone, COVID19 vaccine as appropriate. * DVT prophylaxis - Not necessary, already on Eliquis. * Atrial Fibrillation - Metoprolol 50MG twice daily, Eliquis 5MG twice daily. * Hyperlipidemia - Atorvastatin 10MG QHS. * Insomnia - Melatonin 10MG QHS. * GERD - Pantoprazole 40MG daily. * Nutrition - Pivot 1.5 1000ML QHS, also on regular diet. * GIST tumor - Schedule appt with Dr. Castillo/Dr. Larose/Sirisha Mcknight to see if any adjuvant therapy necessary or offered.
[2020-12-21] MEDS: Pivot 1.5 Cal 1,000 ML 110 ML JT (23:06)
[2020-12-21] MEDS: oxyCODONE 5 MG Tablet PO (23:29)
[2020-12-22 02:06] LABS: Bedside Glucose 96 mg/dL (70-110)
[2020-12-22 05:42] LABS: Absolute Lymphocyte Count 1.24 X10^3/uL (0.83-4.51); Absolute Neutrophil Count 4.4 X10^3/uL (2.0-7.7); Eosinophil# 0.73 X10^3/uL; Eosinophils% 10.7 % (0-5); Hematocrit 23.5 % (40-54); Hemoglobin 7.5 g/dL (13.0-16.5); Lymphocyte # 1.24 X10^3/ul (0.83-4.51); Lymphocyte % 18.1 % (19-41); Mean Corp Hgb Conc 31.9 g/dL (32-36); Mean Corpuscular Hgb 28.5 pg (27.0-32.0); Mean Corpuscular Volume 89.4 fL (80-94); Mean Platelet Vol. 9.1 fl (6.2-12.0); Monocyte# 0.37 X10^3/uL; Monocyte% 5.4 % (0-10); NRBC Flagged by Analyzer 0 % (0-5); Neutrophil # 4.42 X10^3/uL (2.7-7.7); Neutrophil % 64.5 % (47-70); Platelet Count 266 K/mm3 (150-450); RBC Distribution Width CV 15.7 % (11.6-14.6); RBC Distribution Width SD 51.8 fl (35.1-43.9); Red Blood Count 2.63 M/mm3 (4.6-6.2); White Blood Count 6.9 K/mm3 (4.4-11.0)
[2020-12-22 05:59] LABS: Anion Gap 6 (5-15); BUN 22 mg/dL (7-18); BUN/Creat Ratio 27.1 RATIO (10-20); Calcium,Total 7.5 mg/dL (8.5-10.1); Chloride 105 mmol/L (98-107); Creatinine, Serum 0.81 mg/dL (0.70-1.30); EST Glomerular Filtration Rate 97 mL/min (>60); Est Glom Filt Rate - Afr Amer 118 mL/min (>60); Estimated Creatinine Clearance 83.57 ml/min; Glucose 103 mg/dL (74-106); Potassium 3.4 mmol/L (3.5-5.1); Sodium Level 136 mmol/L (136-145)
[2020-12-22 06:26] LABS: Bedside Glucose 113 mg/dL (70-110)
[2020-12-22 06:34] VITALS: BP 102/54; PULSE 112; RESP 18
[2020-12-22 06:43] VITALS: BP 102/54; PULSE 112
[2020-12-22] MEDS: Metoprolol Tartrate 50 MG Tablet PO (06:43)
[2020-12-22] MEDS: APIXABAN 5 MG TABLET PO ×2 (06:43→18:10)
[2020-12-22] MEDS: Pantoprazole Sodium 40 MG Tablet PO (06:44)
[2020-12-22] MEDS: Potassium Chloride Oral Tablet 20 MEQ PO (08:45)
[2020-12-22] MEDS: Iron Polysaccharide Complex 150 MG CAPSULE PO (08:45)
--- NOTE | 2020-12-22 11:38 | NURSING ---
Called Dr. Burkett to check to see orders for GJ tube also when we can start to advance pt's diet. Spoke with Plastic Tile Setter and she will send him a text. Scheduled appt for a F/U 02/11/21 this was the first available appt.
[2020-12-22 11:45] LABS: Bedside Glucose 108 mg/dL (70-110)
--- NOTE | 2020-12-22 12:27 | CASEMGMT ---
Met with pt for initial assessment. KANDICE discussed code status and end of life wishes with pt and assisted pt in completing MOLST form. Pt wishes for full code with intubation and feeding tube. MOSLT form information provided to pt nurse and physician and placed on chart. SW explained Medicare benefit and encouraged pt to contact secondary insurance to ensure copay coverage. Pt plans to return home alone at time of discharge and is hopeful to regain independence while at TCU. KANDICE to continue to follow. LESLIE Barrientos
[2020-12-22] MEDS: Tuberculin,Purif.prot.deriv. 50 TU/ML Vial 0.1 ML ID (12:47)
--- NOTE | 2020-12-22 13:38 | EX.NTREPO ---
Medical Nutrition Therapy - History Nutrition Services has been consulted to:: Manage enteral nutrition Current diet/nutrition support order:: full liquid diet. Pivot 1.5 at 110 ml/hr from 2100-900 daily to provide 1980 sha/123 gm pro/day - if flush 150 ml water every 4 hrs = 1942 ml free water/day. - Anthropometric Measurements Height:: 6 ft 1 in Weight:: 84.056 kg Body Mass Index (BMI):: 24.4 - Relevant Labs Relevant Labs:: RBC 2.63 M/mm3 (4.6-6.2) L 12/22/20 05:24 Hgb 7.5 g/dL (13.0-16.5) L 12/22/20 05:24 Hct 23.5 % (40-54) L 12/22/20 05:24 MCHC 31.9 g/dL (32-36) L 12/22/20 05:24 RDW Std Deviation 51.8 fl (35.1-43.9) H 12/22/20 05:24 RDW Coeff of Chel 15.7 % (11.6-14.6) H 12/22/20 05:24 Immature Gran % (Auto) 1.300 % (0.0-0.9) H 12/22/20 05:24 Lymph % (Auto) 18.1 % (19-41) L 12/22/20 05:24 Eos % (Auto) 10.7 % (0-5) H 12/22/20 05:24 Potassium 3.4 mmol/L (3.5-5.1) L 12/22/20 05:24 BUN 22 mg/dL (7-18) H 12/22/20 05:24 BUN/Creatinine Ratio 27.1 RATIO (10-20) H 12/22/20 05:24 Calcium 7.5 mg/dL (8.5-10.1) L 12/22/20 05:24 - Assessment Food and Nutrient Intake: Poor po intake at meals (had only juice and tea for breakfast). Oral diet mostly for pleasure at this time. Is on a full liquid diet d/t surgery - has G/J tube for gravity gastric drainage and nutrition via jejunum. UBW: 90.718 kg - wt loss of 47.4% x 6-8 wks. - Nutrition Diagnosis: Clinical Problem Acute Disease or Injury Related Malnutrition Clinical Problem - Etiology: related to gastric mass and receiving nutrition via G/J tube Clinical Problem - Signs/Symptoms: as evidenced by <50% po intake x >5 days and 7.4% wt loss x 6-8 weeks prior to admission. Status: Active Problem - Protein Calorie Malnutrition Evidence of Malnutrition Exists: Yes Severe Protein Calorie Malnutrition:: Acute Illness/Injury - Nutrition Intervention Nutrition Prescription: 8642-5034 calories/day (RMR x 1.2-1.3). 84-100 gm pro/day (1-1.2 gm/kg). 2280 ml fluid/day (per ASPEN guidelines) - Food / Nutrient Delivery Interventions Summary of nutrition intervention:: Order/adjust enteral nutrition Nutrition support ordered as / adjusted to:: Will continue tf as ordered. Will order 150 ml free water flush every 4 hours Nutrition education provided?: No - MNT Monitoring Active Nutrition Patient: Yes Nutrition Status: Requires Follow Up 7-9 Days - please call RD/LD at [phone] if questions/concerns
[2020-12-22 13:41] VITALS: BMI 24.4
[2020-12-22 14:03] VITALS: BP 99/53; PULSE 79; RESP 15; TEMP 36.5
--- NOTE | 2020-12-22 14:52 | PHA.CONS_ITS ---
Progress Note - Pharmacy Subjective: TCU Admission Objective: Allergies No Known Allergies Allergy (Verified 12/08/20 13:53) Current Medications Generic Name Dose Route Start Last Admin Trade Name Freq PRN Reason Stop Dose Admin Acetaminophen 1,000 mg 12/21/20 23:13 Acetaminophen 500 Mg Tablet PO Q6H PRN PRN Pain Score 1-5 Apixaban 5 mg 12/22/20 06:00 12/22/20 06:43 Apixaban 5 Mg Tablet PO 5 mg BID ANA Administration Atorvastatin Calcium 10 mg 12/21/20 22:00 12/21/20 22:47 Atorvastatin Calcium 10 Mg Tablet PO 10 mg QHS ANA Administration Bisacodyl 10 mg 12/21/20 23:13 Bisacodyl 5 Mg Tablet PO DAILY PRN Constipation Lactose 1,000 mls @ 110 mls/hr 12/21/20 21:00 12/21/20 23:06 Pivot 1.5 Oli JT 110 mls/hr Q24H ANA Administration Melatonin 10 mg 12/22/20 22:00 Melatonin 10 Mg Tablet PO QHS ANA Metoprolol Tartrate 50 mg 12/22/20 06:00 12/22/20 06:43 Metoprolol Tartrate 50 Mg Tablet PO 50 mg BID ANA Administration Oxycodone HCl 5 mg 12/21/20 23:26 Oxycodone 5 Mg Tablet PO Q6H PRN PRN Pain Score 6-10 Pantoprazole Sodium 40 mg 12/22/20 06:00 12/22/20 06:44 Pantoprazole Sodium 40 Mg Tablet PO 40 mg DAILY ANA Administration Polyethylene Glycol 17 gm 12/22/20 06:00 12/22/20 06:42 Polyethylene Glycol 3350 17 Gm Packet PO Not Given DAILY ANA Polysaccharide Iron Complex 150 mg 12/22/20 08:00 12/22/20 08:45 Iron Polysaccharide Complex 150 Mg Capsule PO 150 mg DAILYCM ANA Administration Senna/Docusate Sodium 1 tablet 12/22/20 06:00 12/22/20 06:44 Senna/Docusate Sodium 1 Tablet PO Not Given BID ANA Tuberculin PPD 0.1 ml 12/29/20 10:00 Tuberculin,Purif.Prot.Deriv. 50 Tu/Ml Vial ID 12/29/20 10:01 X1 ONE Problem List (Last Reviewed 12/21/20 @ 23:[address] Rafael Shepard MD) Atrial fibrillation (Acute) Hyperlipidemia (Acute) Gastroesophageal reflux disease (Acute) Hypertension (Chronic) Alcohol dependence (Acute) Gastrointestinal stromal tumor (GIST) (Acute) Gastric outlet obstruction (Acute) Debility (Acute) Vital Signs Temp Pulse Resp BP Pulse Ox 97.7 F L 79 15 99/53 L 97 12/22/20 14:03 12/22/20 14:03 12/22/20 14:03 12/22/20 14:03 12/21/20 18:14 Oxygen Delivery Method Room Air Weight: 84.056 kg Body Mass Index (BMI) 24.4 Sodium 136 mmol/L (136-145) 12/22/20 05:24 Potassium 3.4 mmol/L (3.5-5.1) L 12/22/20 05:24 Chloride 105 mmol/L (98-107) 12/22/20 05:24 Carbon Dioxide 25.0 mmol/L (21.0-32.0) 12/22/20 05:24 Anion Gap 6 (5-15) 12/22/20 05:24 BUN 22 mg/dL (7-18) H 12/22/20 05:24 Creatinine 0.81 mg/dL (0.70-1.30) 12/22/20 05:24 Est GFR (MDRD) Af Amer 118 mL/min (>60) 12/22/20 05:24 Est GFR (MDRD) Non-Af 97 mL/min (>60) 12/22/20 05:24 BUN/Creatinine Ratio 27.1 RATIO (10-20) H 12/22/20 05:24 Glucose 103 mg/dL (74-106) 12/22/20 05:24 Assessment/Plan: 1. Pain: acetaminophen 1000mg PO Q6H PRN pain 1-5/10 and oxycodone 5mg PO Q6H PRN pain 6-10/10. Please continue to monitor for increased pain, PRN usage, constipation and respiratory depression. *2. Atrial fibrillation: metoprolol tartrate 50mg PO BID and apixaban 5mg PO B ID. Please consider adding hold parameters to metoprolol tartrate based on last BP of 99/53. Please continue to monitor HR (last 79), S/S of bleeding and hemoglobin (last 7.5g/dL). 3. Hyperlipidemia: atorvastatin 10mg PO QHS. Please continue to monitor lipid panel (last 03/02/20) and for muscle pain. 4. Insomnia: melatonin 10mg PO QHS. Please continue to monitor for excessive drowsiness. 5. GERD: pantoprazole 40mg PO daily. Please continue to monitor for S/S of GERD and diarrhea. 6. Iron deficiency (hemoglobin 7.5g/dL): Ferrex 150mg PO DAILYCM. Please continue to monitor hemoglobin, dark stools and constipation. Psychotropic Medications: None Unnecessary Medications: None Bowel Regimen: Miralax 17gm PO daily, senna/docusate 1T PO BID and bisacodyl 10mg PO daily PRN constipation. Please continue to monitor for constipation and PRN usage. Date of Note:: 12/22/20
[2020-12-22] MEDS: Acetaminophen 500 MG Tablet 1000 MG PO ×2 (16:24→22:31)
[2020-12-22 17:16] LABS: Bedside Glucose 88 mg/dL (70-110)
[2020-12-22 18:10] VITALS: BP 91/48; PULSE 82
[2020-12-22] MEDS: Senna/Docusate Sodium 1 Tablet PO (18:10)
--- NOTE | 2020-12-22 18:28 | NURSING ---
Dressing changed to GJ tube this shift site was red with Purulent drainage around sutures. Pt also was draining gastric content around GJ tube pt pulled on it on accident. Drsg changed and no more drainage noted. Dr. Shepard updated New order for Bacitracin entered .
[2020-12-22] MEDS: MELATONIN 10 MG TABLET PO (21:15)
[2020-12-22] MEDS: Atorvastatin Calcium 10 MG Tablet PO (21:15)
[2020-12-22 21:16] VITALS: RESP 18
[2020-12-22] MEDS: BACITRACIN 15 GM Tube 1 APPLIC TOPICAL (21:16)
[2020-12-22] MEDS: Pivot 1.5 Cal 1,000 ML 110 ML JT (21:17)
[2020-12-22 23:01] LABS: Bedside Glucose 106 mg/dL (70-110)
[2020-12-23 06:04] VITALS: BP 92/48; PULSE 76; RESP 18; TEMP 36.6; O2SAT 96
[2020-12-23 06:09] VITALS: BP 92/48; PULSE 76
[2020-12-23] MEDS: APIXABAN 5 MG TABLET PO ×2 (06:09→18:09)
[2020-12-23] MEDS: BACITRACIN 15 GM Tube 1 APPLIC TOPICAL ×3 (06:09→21:24)
[2020-12-23] MEDS: Pantoprazole Sodium 40 MG Tablet PO (06:09)
[2020-12-23 06:14] LABS: Anion Gap 5 (5-15); BUN 23 mg/dL (7-18); BUN/Creat Ratio 30.8 RATIO (10-20); Calcium,Total 7.3 mg/dL (8.5-10.1); Chloride 105 mmol/L (98-107); Creatinine, Serum 0.75 mg/dL (0.70-1.30); EST Glomerular Filtration Rate 107 mL/min (>60); Est Glom Filt Rate - Afr Amer 130 mL/min (>60); Estimated Creatinine Clearance 67.69 ml/min; Glucose 105 mg/dL (74-106); Sodium Level 135 mmol/L (136-145)
[2020-12-23 06:31] LABS: Bedside Glucose 119 mg/dL (70-110)
[2020-12-23] MEDS: Iron Polysaccharide Complex 150 MG CAPSULE PO (08:12)
--- NOTE | 2020-12-23 10:17 | NURSING ---
wound photo: GJ tube abdomen
--- NOTE | 2020-12-23 10:18 | NURSING ---
Was asked to see patient for redness to the GJ tube site. patient does have [address] there is some slight redness noted to the suture sites. It is not unusual to have some redness at these sites. does not appear to be infected. no purulence noted. cleansed around the bumper with warm water. pat dry. placed dry dressing around the tubing to absorb drainage. will monitor as needed. see skin photo.
[2020-12-23 10:50] LABS: Bedside Glucose 100 mg/dL (70-110)
--- NOTE | 2020-12-23 10:51 | NURSING ---
Called [facility] to schedule an appt. Left message for them to call back.
--- NOTE | 2020-12-23 13:28 | NURSING ---
Made appt with Dr. Larose 12/30/20 @ 2303. Requested Biopsy pathology report which is still in progress will call Dr. Lowe [phone] later this week to see if pathogeny is done.
[2020-12-23 16:33] VITALS: BP 98/63; PULSE 74; RESP 18; TEMP 36.8; O2SAT 97
[2020-12-23 17:21] LABS: Bedside Glucose 94 mg/dL (70-110)
[2020-12-23 18:09] VITALS: BP 98/63; PULSE 74
[2020-12-23] MEDS: Menthol/Lanolin/Calamine/Znox 113 GM Tube 1 APPLIC TOPICAL (18:09)
[2020-12-23] MEDS: Pivot 1.5 Cal 1,000 ML 110 ML JT (21:23)
[2020-12-23] MEDS: Atorvastatin Calcium 10 MG Tablet PO (21:24)
[2020-12-23] MEDS: MELATONIN 10 MG TABLET PO (21:24)
[2020-12-23 21:50] LABS: Bedside Glucose 94 mg/dL (70-110)
[2020-12-23] MEDS: oxyCODONE 5 MG Tablet PO (22:04)
[2020-12-24 05:31] VITALS: BP 106/83; PULSE 64; RESP 18; TEMP 37.1; O2SAT 96
[2020-12-24] MEDS: Menthol/Lanolin/Calamine/Znox 113 GM Tube 1 APPLIC TOPICAL ×2 (05:44→14:22)
[2020-12-24] MEDS: BACITRACIN 15 GM Tube 1 APPLIC TOPICAL ×3 (05:44→21:45)
[2020-12-24] MEDS: Pantoprazole Sodium 40 MG Tablet PO (05:45)
[2020-12-24] MEDS: APIXABAN 5 MG TABLET PO ×2 (05:45→16:52)
[2020-12-24 05:47] VITALS: BP 106/83; PULSE 64
[2020-12-24] MEDS: Metoprolol Tartrate 50 MG Tablet PO ×2 (05:47→16:53)
[2020-12-24 06:26] LABS: Bedside Glucose 116 mg/dL (70-110)
[2020-12-24 07:06] LABS: Hematocrit 26.5 % (40-54); Hemoglobin 8.4 g/dL (13.0-16.5)
[2020-12-24] MEDS: Iron Polysaccharide Complex 150 MG CAPSULE PO (08:34)
[2020-12-24] MEDS: oxyCODONE 5 MG Tablet PO ×3 (09:33→22:54)
[2020-12-24 11:05] LABS: Bedside Glucose 109 mg/dL (70-110)
[2020-12-24] MEDS: Acetaminophen 500 MG Tablet 1000 MG PO (14:31)
[2020-12-24 15:59] VITALS: BP 105/60; PULSE 107; RESP 18; TEMP 37.6; O2SAT 94
[2020-12-24 16:53] VITALS: PULSE 120
[2020-12-24 17:10] LABS: Bedside Glucose 115 mg/dL (70-110)
[2020-12-24 21:31] LABS: Bedside Glucose 103 mg/dL (70-110)
[2020-12-24] MEDS: Pivot 1.5 Cal 1,000 ML 110 ML JT (21:42)
[2020-12-24] MEDS: Atorvastatin Calcium 10 MG Tablet PO (21:43)
[2020-12-24] MEDS: MELATONIN 10 MG TABLET PO (21:44)
[2020-12-24 23:03] VITALS: PULSE 96; RESP 14
[2020-12-25 05:00] VITALS: RESP 16; TEMP 36.7; O2SAT 93
[2020-12-25 06:40] LABS: Bedside Glucose 140 mg/dL (70-110)
[2020-12-25] MEDS: BACITRACIN 15 GM Tube 1 APPLIC TOPICAL ×3 (06:40→21:01)
[2020-12-25] MEDS: Menthol/Lanolin/Calamine/Znox 113 GM Tube 1 APPLIC TOPICAL ×2 (06:40→17:05)
[2020-12-25] MEDS: oxyCODONE 5 MG Tablet PO ×3 (06:41→21:00)
[2020-12-25 06:42] VITALS: BP 100/66; PULSE 93
[2020-12-25] MEDS: APIXABAN 5 MG TABLET PO ×2 (06:42→17:04)
[2020-12-25] MEDS: Metoprolol Tartrate 50 MG Tablet PO ×2 (06:42→17:04)
[2020-12-25] MEDS: Pantoprazole Sodium 40 MG Tablet PO (06:44)
[2020-12-25] MEDS: Acetaminophen 500 MG Tablet 1000 MG PO (09:13)
[2020-12-25] MEDS: Iron Polysaccharide Complex 150 MG CAPSULE PO (09:13)
[2020-12-25 10:00] VITALS: PULSE 92; RESP 16; O2SAT 92
[2020-12-25 11:36] LABS: Bedside Glucose 133 mg/dL (70-110)
[2020-12-25 14:21] VITALS: BP 120/65; PULSE 124; RESP 17; TEMP 36.7; O2SAT 96
[2020-12-25 16:21] LABS: Bedside Glucose 102 mg/dL (70-110)
[2020-12-25 17:04] VITALS: PULSE 124
[2020-12-25] MEDS: MELATONIN 10 MG TABLET PO (21:00)
[2020-12-25] MEDS: Atorvastatin Calcium 10 MG Tablet PO (21:00)
[2020-12-25] MEDS: Pivot 1.5 Cal 1,000 ML 110 ML JT (21:01)
[2020-12-25 21:36] LABS: Bedside Glucose 97 mg/dL (70-110)
[2020-12-26] MEDS: oxyCODONE 5 MG Tablet PO ×3 (02:59→18:42)
[2020-12-26] MEDS: Pantoprazole Sodium 40 MG Tablet PO (05:17)
[2020-12-26] MEDS: APIXABAN 5 MG TABLET PO ×2 (05:18→17:29)
[2020-12-26] MEDS: BACITRACIN 15 GM Tube 1 APPLIC TOPICAL ×3 (05:23→21:51)
[2020-12-26] MEDS: Menthol/Lanolin/Calamine/Znox 113 GM Tube 1 APPLIC TOPICAL ×2 (05:24→17:29)
[2020-12-26 05:25] VITALS: BP 93/47; PULSE 91
[2020-12-26 06:31] LABS: Bedside Glucose 107 mg/dL (70-110)
[2020-12-26 06:54] VITALS: BP 93/47; PULSE 91; RESP 12; TEMP 36.8; O2SAT 97
[2020-12-26] MEDS: Iron Polysaccharide Complex 150 MG CAPSULE PO (09:28)
[2020-12-26 11:21] LABS: Bedside Glucose 94 mg/dL (70-110)
[2020-12-26] MEDS: Acetaminophen 500 MG Tablet 1000 MG PO (13:27)
[2020-12-26 14:03] VITALS: BP 100/47; PULSE 113; RESP 20; TEMP 36.6; O2SAT 100
[2020-12-26 16:20] LABS: Bedside Glucose 96 mg/dL (70-110)
[2020-12-26 17:29] VITALS: PULSE 113
[2020-12-26] MEDS: Metoprolol Tartrate 50 MG Tablet PO (17:29)
[2020-12-26] MEDS: Pivot 1.5 Cal 1,000 ML 110 ML JT (21:39)
[2020-12-26 21:51] LABS: Bedside Glucose 82 mg/dL (70-110)
[2020-12-26] MEDS: MELATONIN 10 MG TABLET PO (21:58)
[2020-12-26] MEDS: Atorvastatin Calcium 10 MG Tablet PO (21:58)
[2020-12-27] MEDS: oxyCODONE 5 MG Tablet PO ×4 (00:44→19:23)
--- NOTE | 2020-12-27 02:56 | NURSING ---
Left voicemail for social worker health services to coordinate care with regulator pin inserter regarding tube feeds and diarrhea.
[2020-12-27 06:05] VITALS: BP 97/52; PULSE 89; RESP 16; TEMP 36.8; O2SAT 97
[2020-12-27] MEDS: Acetaminophen 500 MG Tablet 1000 MG PO (06:05)
[2020-12-27] MEDS: APIXABAN 5 MG TABLET PO ×2 (06:07→18:20)
[2020-12-27] MEDS: Pantoprazole Sodium 40 MG Tablet PO (06:07)
[2020-12-27] MEDS: Menthol/Lanolin/Calamine/Znox 113 GM Tube 1 APPLIC TOPICAL ×2 (06:08→18:20)
[2020-12-27 06:09] VITALS: BP 97/52
[2020-12-27] MEDS: BACITRACIN 15 GM Tube 1 APPLIC TOPICAL ×3 (06:09→21:02)
[2020-12-27 06:20] LABS: Bedside Glucose 119 mg/dL (70-110)
[2020-12-27] MEDS: Iron Polysaccharide Complex 150 MG CAPSULE PO (08:22)
[2020-12-27 10:35] LABS: Bedside Glucose 98 mg/dL (70-110)
--- NOTE | 2020-12-27 10:39 | NURSING ---
Called Dr. Lowe's office to get order changed to Jevity d/t pt c/o of Diarrhea also the pt was concerned with a possible blockage in his intestine. Talked with Anne Marie Lowe's Nurse and per Dr. Lowe's okay to switch him to Jeveity 1.5. Dr. Lowe expected the patient to have large amounts of diarrhea d/t tube feed and also large amounts of gastric contents draining and is not concerned about a possible blockage. Confirmed with nurse that orders are correct and we should continue to drain gastric contents during tube feeds and as needed throughout the day for Nausea. Updated pt at this time and will update [facility] And Transfer Beader.
--- NOTE | 2020-12-27 13:57 | NURSING ---
In to reassess the GJ tube. still some mild redness noted around the two suture sites. dressing is clean and dry. no purulence noted. will monitor. pt denies needs.
[2020-12-27 14:16] VITALS: BP 96/55; PULSE 89; RESP 17; TEMP 36.9; O2SAT 95
[2020-12-27 16:55] LABS: Bedside Glucose 84 mg/dL (70-110)
[2020-12-27 18:18] VITALS: BP 91/68; PULSE 92
[2020-12-27] MEDS: Atorvastatin Calcium 10 MG Tablet PO (21:03)
[2020-12-27] MEDS: MELATONIN 10 MG TABLET PO (21:03)
[2020-12-27] MEDS: Vital AF 1.2 Cal Liquid 1,000 ML 110 ML GT (21:11)
[2020-12-27 22:01] LABS: Bedside Glucose 119 mg/dL (70-110)
[2020-12-28] MEDS: Pantoprazole Sodium 40 MG Tablet PO (04:38)
[2020-12-28] MEDS: APIXABAN 5 MG TABLET PO ×2 (04:38→17:12)
[2020-12-28 04:39] VITALS: BP 94/57; PULSE 90; PULSE 92; RESP 18; TEMP 36.4; O2SAT 92
[2020-12-28] MEDS: Menthol/Lanolin/Calamine/Znox 113 GM Tube 1 APPLIC TOPICAL ×2 (04:40→17:13)
[2020-12-28] MEDS: BACITRACIN 15 GM Tube 1 APPLIC TOPICAL ×3 (04:40→22:43)
[2020-12-28] MEDS: Vital AF 1.2 Cal Liquid 1,000 ML 110 ML GT ×2 (07:03→22:38)
[2020-12-28] MEDS: oxyCODONE 5 MG Tablet PO ×3 (07:05→19:52)
[2020-12-28] MEDS: Iron Polysaccharide Complex 150 MG CAPSULE PO (08:50)
--- NOTE | 2020-12-28 09:33 | NURSING ---
Pt Blood Pressure has been running in the low 90's Lopressor has been held multiple times. Dr. Shepard updated and would like Lopressor given if pt is non-symptomatic.
[2020-12-28 11:00] LABS: Bedside Glucose 98 mg/dL (70-110)
[2020-12-28 13:52] VITALS: BP 91/56; PULSE 87; RESP 16; TEMP 36.7; O2SAT 95
--- NOTE | 2020-12-28 14:48 | NURSING ---
Called Dr. Lowe's office Sunday Pathology report was still not completed. Office said to call back on Sunday it should be completed by then. Dr. Lara
--- NOTE | 2020-12-28 14:50 | NURSING ---
Called Dr. Castillo's office Sunday to check on status of Pathology report. Office stated it was not completed at this time and to try back on Sunday. Dr. Larose's office called inquiring about pathology report updated them about not yet being completed. If we do not get the report by Sunday we will have to reschedule appt. with Dr. Larose.
[2020-12-28 16:45] LABS: Bedside Glucose 91 mg/dL (70-110)
[2020-12-28 17:13] VITALS: BP 112/43; PULSE 97
[2020-12-28 19:50] VITALS: BP 94/52; PULSE 96; RESP 20; TEMP 37.3; O2SAT 95
--- NOTE | 2020-12-28 20:53 | RAD_ITS ---
STUDY: X-RAY - ABDOMEN/PELVIS REASON FOR EXAM: Male, 80 years old. Verify placement of J tube TECHNIQUE: Single AP view of the abdomen / pelvis. COMPARISON: None. FINDINGS: 30 cc of a mixture of GASTROGRAFIN and water was injected into the J-tube. Contrast is seen within the stomach and proximal jejunum.. RAD/Abdomen Single View IMPRESSION: Contrast is seen within the stomach and proximal jejunum. Electronically Signed: Edmund Sauceda MD at 21:14 EDT , Service support ,
[2020-12-28 22:36] LABS: Bedside Glucose 96 mg/dL (70-110)
[2020-12-28] MEDS: Atorvastatin Calcium 10 MG Tablet PO (22:39)
[2020-12-28] MEDS: MELATONIN 10 MG TABLET PO (22:42)
[2020-12-29] MEDS: Acetaminophen 500 MG Tablet 1000 MG PO ×3 (02:03→15:15)
[2020-12-29 05:40] LABS: Absolute Lymphocyte Count 1.28 X10^3/uL (0.83-4.51); Absolute Neutrophil Count 6.1 X10^3/uL (2.0-7.7); Basophil# 0.04 X10^3/uL; Basophil% 0.5 % (0-1); Eosinophil# 0.34 X10^3/uL; Eosinophils% 4.1 % (0-5); Hematocrit 22.4 % (40-54); Hemoglobin 7.2 g/dL (13.0-16.5); Lymphocyte # 1.28 X10^3/ul (0.83-4.51); Lymphocyte % 15.5 % (19-41); Mean Corp Hgb Conc 32.1 g/dL (32-36); Mean Corpuscular Volume 87.2 fL (80-94); Mean Platelet Vol. 8.2 fl (6.2-12.0); Monocyte# 0.44 X10^3/uL; Monocyte% 5.3 % (0-10); NRBC Flagged by Analyzer 0 % (0-5); Neutrophil # 6.14 X10^3/uL (2.7-7.7); Neutrophil % 74.1 % (47-70); Platelet Count 443 K/mm3 (150-450); RBC Distribution Width CV 15.3 % (11.6-14.6); RBC Distribution Width SD 49.1 fl (35.1-43.9); Red Blood Count 2.57 M/mm3 (4.6-6.2); White Blood Count 8.3 K/mm3 (4.4-11.0)
[2020-12-29 05:54] LABS: Anion Gap 6 (5-15); BUN 16 mg/dL (7-18); BUN/Creat Ratio 26.2 RATIO (10-20); Calcium,Total 7.5 mg/dL (8.5-10.1); Chloride 100 mmol/L (98-107); Creatinine, Serum 0.61 mg/dL (0.70-1.30); EST Glomerular Filtration Rate 135 mL/min (>60); Est Glom Filt Rate - Afr Amer 164 mL/min (>60); Estimated Creatinine Clearance 67.69 ml/min; Glucose 102 mg/dL (74-106); Potassium 3.7 mmol/L (3.5-5.1); Sodium Level 134 mmol/L (136-145)
[2020-12-29 06:06] VITALS: BP 92/54; PULSE 94; RESP 18; TEMP 36.8; O2SAT 96
[2020-12-29] MEDS: Menthol/Lanolin/Calamine/Znox 113 GM Tube 1 APPLIC TOPICAL ×2 (06:08→17:21)
[2020-12-29 06:09] VITALS: BP 92/54; PULSE 94
[2020-12-29] MEDS: BACITRACIN 15 GM Tube 1 APPLIC TOPICAL ×3 (06:09→21:21)
[2020-12-29] MEDS: Pantoprazole Sodium 40 MG Tablet PO (06:10)
[2020-12-29 06:40] LABS: Bedside Glucose 105 mg/dL (70-110)
[2020-12-29] MEDS: Iron Polysaccharide Complex 150 MG CAPSULE PO (07:39)
--- NOTE | 2020-12-29 08:07 | NURSING ---
dr ball aware of HGB 7.2, new order for 2 units PRBC's tomorrow, Type & cross today. recheck H/H on 12/31/20
--- NOTE | 2020-12-29 08:57 | NURSING ---
faxed blood order & consent to infusion center and notified. They would like pt brought down via bed at 0830 on 12/30/20. will pass on in report.
[2020-12-29 10:56] LABS: Bedside Glucose 111 mg/dL (70-110)
[2020-12-29] MEDS: Tuberculin,Purif.prot.deriv. 50 TU/ML Vial 0.1 ML ID (11:22)
[2020-12-29 14:02] VITALS: BP 113/65; PULSE 91; RESP 18; TEMP 36; O2SAT 96
--- NOTE | 2020-12-29 14:20 | CASEMGMT ---
Social Work Plan of care meeting held with pt present and daughter on conference call. Pt is receiving PT/OT and participating well. Pt is here under his Medicare benefit which was explained to pt. Pt plans to return home alone. Private duty home health aid list given to pt as he feels he may need additional help. No discharge date set at this time. Will continue with TCU treatment plan at this time. LESLIE Barrientos
[2020-12-29 15:27] VITALS: PULSE 89; RESP 16; O2SAT 99
[2020-12-29 16:16] LABS: Bedside Glucose 95 mg/dL (70-110)
[2020-12-29 17:21] VITALS: PULSE 89
[2020-12-29] MEDS: MELATONIN 10 MG TABLET PO (21:21)
[2020-12-29] MEDS: Atorvastatin Calcium 10 MG Tablet PO (21:21)
[2020-12-29 21:55] LABS: Bedside Glucose 89 mg/dL (70-110)
[2020-12-29] MEDS: Vital AF 1.2 Cal Liquid 1,000 ML 110 ML GT (22:20)
[2020-12-30 05:50] VITALS: BP 104/63; PULSE 63; RESP 18; TEMP 36.6
[2020-12-30 05:54] VITALS: BP 104/63; PULSE 63
[2020-12-30] MEDS: BACITRACIN 15 GM Tube 1 APPLIC TOPICAL ×3 (05:55→19:55)
[2020-12-30] MEDS: Pantoprazole Sodium 40 MG Tablet PO (05:55)
[2020-12-30] MEDS: Menthol/Lanolin/Calamine/Znox 113 GM Tube 1 APPLIC TOPICAL ×2 (05:55→17:33)
[2020-12-30 06:25] LABS: Bedside Glucose 133 mg/dL (70-110)
[2020-12-30] MEDS: Iron Polysaccharide Complex 150 MG CAPSULE PO (08:13)
[2020-12-30 16:11] VITALS: BP 108/56; PULSE 87; RESP 18; TEMP 36.5; O2SAT 93
[2020-12-30] MEDS: MELATONIN 10 MG TABLET PO (19:55)
[2020-12-30] MEDS: Atorvastatin Calcium 10 MG Tablet PO (19:55)
[2020-12-30] MEDS: Vital AF 1.2 Cal Liquid 1,000 ML 110 ML GT (20:02)
[2020-12-31 05:26] LABS: Hematocrit 29.3 % (40-54); Hemoglobin 9.4 g/dL (13.0-16.5)
[2020-12-31] MEDS: Menthol/Lanolin/Calamine/Znox 113 GM Tube 1 APPLIC TOPICAL ×2 (05:41→17:39)
[2020-12-31] MEDS: BACITRACIN 15 GM Tube 1 APPLIC TOPICAL ×3 (05:41→22:21)
[2020-12-31] MEDS: Pantoprazole Sodium 40 MG Tablet PO (05:44)
[2020-12-31 05:45] VITALS: BP 106/48; PULSE 95; RESP 18; TEMP 36.8; O2SAT 95
--- NOTE | 2020-12-31 07:27 | NURSING ---
BS 11 this am
[2020-12-31] MEDS: Iron Polysaccharide Complex 150 MG CAPSULE PO (07:53)
[2020-12-31 09:20] VITALS: PULSE 81; RESP 18; O2SAT 93
--- NOTE | 2020-12-31 11:32 | NURSING ---
Previous charting form am RN was in error. patients am BS was 111.
[2020-12-31 14:33] VITALS: BP 105/46; PULSE 63; RESP 16; TEMP 37.1; O2SAT 95
[2020-12-31] MEDS: Acetaminophen 500 MG Tablet 1000 MG PO (15:29)
[2020-12-31 16:01] LABS: Bedside Glucose 107 mg/dL (70-110)
[2020-12-31 17:38] VITALS: PULSE 63
[2020-12-31] MEDS: Vital AF 1.2 Cal Liquid 1,000 ML 110 ML GT (22:15)
[2020-12-31] MEDS: Doxepin Hydrochloride 10 MG Capsule PO (22:22)
[2020-12-31] MEDS: Atorvastatin Calcium 10 MG Tablet PO (22:22)
[2020-12-31 22:41] LABS: Bedside Glucose 80 mg/dL (70-110)
[2021-01-01] MEDS: Loperamide 2 MG Capsule PO (01:46)
[2021-01-01 05:00] VITALS: BP 106/56; PULSE 103; RESP 18; TEMP 37.2; O2SAT 95
[2021-01-01 05:02] VITALS: BP 106/56; PULSE 103
[2021-01-01] MEDS: APIXABAN 5 MG TABLET PO ×2 (05:03→18:23)
[2021-01-01] MEDS: Pantoprazole Sodium 40 MG Tablet PO (05:03)
[2021-01-01] MEDS: BACITRACIN 15 GM Tube 1 APPLIC TOPICAL ×3 (05:04→21:05)
[2021-01-01] MEDS: Menthol/Lanolin/Calamine/Znox 113 GM Tube 1 APPLIC TOPICAL ×2 (05:05→18:24)
[2021-01-01 06:50] LABS: Bedside Glucose 128 mg/dL (70-110)
[2021-01-01] MEDS: Iron Polysaccharide Complex 150 MG CAPSULE PO (07:59)
[2021-01-01 11:30] LABS: Bedside Glucose 90 mg/dL (70-110)
[2021-01-01 15:32] VITALS: BP 106/49; PULSE 112; RESP 16; TEMP 36.9; O2SAT 93
[2021-01-01 16:51] LABS: Bedside Glucose 91 mg/dL (70-110)
[2021-01-01 18:23] VITALS: PULSE 119
[2021-01-01] MEDS: Metoprolol Tartrate 50 MG Tablet PO (18:23)
[2021-01-01] MEDS: Vital AF 1.2 Cal Liquid 1,000 ML 110 ML GT (21:05)
[2021-01-01] MEDS: Atorvastatin Calcium 10 MG Tablet PO (21:06)
[2021-01-01] MEDS: Doxepin Hydrochloride 10 MG Capsule PO (21:06)
[2021-01-01] MEDS: Acetaminophen 500 MG Tablet 1000 MG PO (21:41)
[2021-01-01 21:46] LABS: Bedside Glucose 107 mg/dL (70-110)
[2021-01-01 23:27] VITALS: RESP 16
[2021-01-02 05:06] VITALS: BP 92/53; PULSE 92; RESP 18; TEMP 36.3; O2SAT 97
--- NOTE | 2021-01-02 05:11 | NURSING ---
Lopressor held at this time due to Bp 92/53, pulse 92.
[2021-01-02] MEDS: Pantoprazole Sodium 40 MG Tablet PO (05:13)
[2021-01-02] MEDS: APIXABAN 5 MG TABLET PO ×2 (05:13→17:25)
[2021-01-02] MEDS: Menthol/Lanolin/Calamine/Znox 113 GM Tube 1 APPLIC TOPICAL ×2 (05:14→17:25)
[2021-01-02] MEDS: BACITRACIN 15 GM Tube 1 APPLIC TOPICAL (05:14)
[2021-01-02 05:21] VITALS: PULSE 84
[2021-01-02 06:41] LABS: Bedside Glucose 113 mg/dL (70-110)
[2021-01-02 08:03] VITALS: BP 103/50; PULSE 101
[2021-01-02] MEDS: Iron Polysaccharide Complex 150 MG CAPSULE PO (08:03)
[2021-01-02] MEDS: Loperamide 2 MG Capsule PO (08:05)
[2021-01-02 11:08] VITALS: BP 90/53; PULSE 84; PULSE 85; RESP 16; O2SAT 98
[2021-01-02] MEDS: Acetaminophen 500 MG Tablet 1000 MG PO ×2 (11:19→19:38)
[2021-01-02 11:36] LABS: Bedside Glucose 86 mg/dL (70-110)
[2021-01-02 14:45] VITALS: BP 101/59; PULSE 97; RESP 16; TEMP 36.8; O2SAT 96
[2021-01-02 16:26] LABS: Bedside Glucose 86 mg/dL (70-110)
[2021-01-02 17:24] VITALS: BP 112/58; PULSE 100
[2021-01-02] MEDS: Metoprolol Tartrate 50 MG Tablet PO (17:24)
[2021-01-02] MEDS: Vital AF 1.2 Cal Liquid 1,000 ML 110 ML GT (21:32)
[2021-01-02] MEDS: Atorvastatin Calcium 10 MG Tablet PO (21:42)
[2021-01-02] MEDS: Doxepin Hydrochloride 10 MG Capsule PO (21:42)
[2021-01-02 22:20] LABS: Bedside Glucose 103 mg/dL (70-110)
[2021-01-03 05:34] VITALS: BP 101/56; PULSE 100; RESP 14; TEMP 37; O2SAT 96
[2021-01-03] MEDS: Menthol/Lanolin/Calamine/Znox 113 GM Tube 1 APPLIC TOPICAL ×2 (05:38→17:52)
[2021-01-03 05:39] VITALS: BP 101/56; PULSE 100
[2021-01-03] MEDS: Pantoprazole Sodium 40 MG Tablet PO (05:39)
[2021-01-03] MEDS: Metoprolol Tartrate 50 MG Tablet PO ×2 (05:39→17:52)
[2021-01-03] MEDS: APIXABAN 5 MG TABLET PO ×2 (05:40→17:52)
[2021-01-03 06:46] LABS: Bedside Glucose 113 mg/dL (70-110)
[2021-01-03] MEDS: Iron Polysaccharide Complex 150 MG CAPSULE PO (07:53)
[2021-01-03] MEDS: Acetaminophen 500 MG Tablet 1000 MG PO (07:56)
[2021-01-03 10:00] VITALS: RESP 18
[2021-01-03 11:11] LABS: Bedside Glucose 105 mg/dL (70-110)
--- NOTE | 2021-01-03 12:00 | MDS.RN ---
Information for the mds was obtained from review of the clinical record, interview of resident, staff, and direct observation of resident's care.
[2021-01-03 14:20] VITALS: BP 120/66; PULSE 101; RESP 16; TEMP 36.3; O2SAT 100
[2021-01-03 16:26] LABS: Bedside Glucose 91 mg/dL (70-110)
[2021-01-03 17:52] VITALS: PULSE 101
[2021-01-03] MEDS: Doxepin Hydrochloride 10 MG Capsule PO (20:06)
[2021-01-03] MEDS: Atorvastatin Calcium 10 MG Tablet PO (20:06)
[2021-01-03] MEDS: Vital AF 1.2 Cal Liquid 1,000 ML 110 ML GT (20:06)
[2021-01-03 22:46] LABS: Bedside Glucose 103 mg/dL (70-110)
[2021-01-04 04:52] VITALS: BP 89/52; PULSE 88; RESP 16; TEMP 36.4
[2021-01-04] MEDS: Menthol/Lanolin/Calamine/Znox 113 GM Tube 1 APPLIC TOPICAL ×2 (05:02→17:18)
[2021-01-04] MEDS: Pantoprazole Sodium 40 MG Tablet PO (05:03)
[2021-01-04] MEDS: APIXABAN 5 MG TABLET PO ×2 (05:03→17:16)
[2021-01-04 06:30] LABS: Bedside Glucose 119 mg/dL (70-110)
[2021-01-04 07:55] VITALS: BP 89/52
[2021-01-04] MEDS: Iron Polysaccharide Complex 150 MG CAPSULE PO (07:57)
[2021-01-04 11:00] LABS: Bedside Glucose 112 mg/dL (70-110)
[2021-01-04] MEDS: Acetaminophen 500 MG Tablet 1000 MG PO ×2 (12:47→22:09)
[2021-01-04 14:24] VITALS: BP 105/68; PULSE 101; RESP 18; TEMP 36.1; O2SAT 96
[2021-01-04 16:16] LABS: Bedside Glucose 93 mg/dL (70-110)
[2021-01-04 17:16] VITALS: PULSE 101
[2021-01-04] MEDS: Metoprolol Tartrate 50 MG Tablet PO (17:16)
[2021-01-04 21:36] LABS: Bedside Glucose 85 mg/dL (70-110)
[2021-01-04] MEDS: Vital AF 1.2 Cal Liquid 1,000 ML 110 ML GT (21:58)
[2021-01-04] MEDS: Doxepin Hydrochloride 10 MG Capsule PO (22:09)
[2021-01-04] MEDS: Atorvastatin Calcium 10 MG Tablet PO (22:09)
[2021-01-05 05:36] LABS: Absolute Lymphocyte Count 2.03 X10^3/uL (0.83-4.51); Absolute Neutrophil Count 4.3 X10^3/uL (2.0-7.7); Basophil# 0.03 X10^3/uL; Basophil% 0.4 % (0-1); Eosinophil# 0.27 X10^3/uL; Eosinophils% 3.7 % (0-5); Hematocrit 29.8 % (40-54); Hemoglobin 9.4 g/dL (13.0-16.5); Lymphocyte # 2.03 X10^3/ul (0.83-4.51); Lymphocyte % 28.1 % (19-41); Mean Corp Hgb Conc 31.5 g/dL (32-36); Mean Corpuscular Hgb 27.4 pg (27.0-32.0); Mean Corpuscular Volume 86.9 fL (80-94); Mean Platelet Vol. 8.3 fl (6.2-12.0); Monocyte# 0.58 X10^3/uL; NRBC Flagged by Analyzer 0 % (0-5); Neutrophil # 4.27 X10^3/uL (2.7-7.7); Neutrophil % 59.2 % (47-70); Platelet Count 332 K/mm3 (150-450); RBC Distribution Width SD 48.1 fl (35.1-43.9); Red Blood Count 3.43 M/mm3 (4.6-6.2); White Blood Count 7.2 K/mm3 (4.4-11.0)
[2021-01-05 05:42] VITALS: BP 96/54; PULSE 98; RESP 17; TEMP 36.4; O2SAT 99
[2021-01-05] MEDS: APIXABAN 5 MG TABLET PO ×2 (05:48→18:27)
[2021-01-05] MEDS: Menthol/Lanolin/Calamine/Znox 113 GM Tube 1 APPLIC TOPICAL ×2 (05:48→18:27)
[2021-01-05 05:49] VITALS: BP 96/54; PULSE 98
[2021-01-05] MEDS: Pantoprazole Sodium 40 MG Tablet PO (05:49)
[2021-01-05 05:54] LABS: Anion Gap 6 (5-15); BUN 18 mg/dL (7-18); BUN/Creat Ratio 24.6 RATIO (10-20); Calcium,Total 7.7 mg/dL (8.5-10.1); Chloride 102 mmol/L (98-107); Creatinine, Serum 0.73 mg/dL (0.70-1.30); EST Glomerular Filtration Rate 110 mL/min (>60); Est Glom Filt Rate - Afr Amer 133 mL/min (>60); Estimated Creatinine Clearance 67.69 ml/min; Glucose 100 mg/dL (74-106); Potassium 3.3 mmol/L (3.5-5.1); Sodium Level 136 mmol/L (136-145)
[2021-01-05 06:36] LABS: Bedside Glucose 124 mg/dL (70-110)
[2021-01-05] MEDS: Iron Polysaccharide Complex 150 MG CAPSULE PO (08:03)
[2021-01-05] MEDS: Potassium Chloride Oral Tablet 20 MEQ PO (08:07)
[2021-01-05 10:50] LABS: Bedside Glucose 89 mg/dL (70-110)
--- NOTE | 2021-01-05 14:54 | CHAPLAIN ---
Type of Pastoral Visit _x__ Initial Visit ___ Follow-up Visit ___ On-call Visit ___ General Patient Visit ___ Spiritual Assessment ___ Family Conference ___ Bereavement ___ Rapid Response ___ Code Blue ___ Other (describe below) Pastoral Care Referral From _x__ Patient ___ Family ___ Nurse ___ Physician ___ Nailer Operator ___ Line Server _x__ Other (describe below) Sacrament/Intervention _x__ Active listening ___ Anointing ___ Synagogue ___ Bereavement ___ Communion _x__ Cha exploration ___ _x__ Life review _x__ Prayer ___ Reconciliation ___ Sacrament of Sick _x__ Supportive presence ___ Wedding ___ Other (describe below) Pastoral Comments recommendation from Wildlife Ecologist for visit; pt is welcoming and open to conversation and discussion of his emotional and spiritual status; pt knows that he will most likely not survive this cancer and finds his greatest comfort in his cha in God's forgiveness and care; pt gives life review; pt is but has other friends and family; pt is willing to talk and to receive prayer
[2021-01-05 16:00] VITALS: BP 92/61; PULSE 90; RESP 18; TEMP 36.4; O2SAT 96
[2021-01-05 16:50] LABS: Bedside Glucose 85 mg/dL (70-110)
[2021-01-05] MEDS: Pivot 1.5 Cal 1,000 ML 100 ML GT ×2 (18:26→23:40)
[2021-01-05 18:28] VITALS: PULSE 90
[2021-01-05] MEDS: Metoprolol Tartrate 50 MG Tablet PO (18:28)
[2021-01-05] MEDS: Acetaminophen 500 MG Tablet 1000 MG PO (20:24)
[2021-01-05 21:55] LABS: Bedside Glucose 109 mg/dL (70-110)
[2021-01-05] MEDS: Atorvastatin Calcium 10 MG Tablet PO (22:44)
[2021-01-05] MEDS: Doxepin Hydrochloride 10 MG Capsule PO (22:44)
[2021-01-06 05:00] VITALS: BP 101/53; PULSE 83; RESP 16; TEMP 35.8; O2SAT 96
[2021-01-06] MEDS: Menthol/Lanolin/Calamine/Znox 113 GM Tube 1 APPLIC TOPICAL ×2 (05:15→17:46)
[2021-01-06 05:16] VITALS: BP 101/53; PULSE 83
[2021-01-06] MEDS: APIXABAN 5 MG TABLET PO ×2 (05:16→17:45)
[2021-01-06] MEDS: Metoprolol Tartrate 50 MG Tablet PO (05:16)
[2021-01-06] MEDS: Pantoprazole Sodium 40 MG Tablet PO (05:17)
[2021-01-06 06:26] LABS: Bedside Glucose 125 mg/dL (70-110)
[2021-01-06] MEDS: Potassium Chloride Oral Tablet 20 MEQ PO (07:50)
[2021-01-06] MEDS: Iron Polysaccharide Complex 150 MG CAPSULE PO (07:50)
[2021-01-06] MEDS: Acetaminophen 500 MG Tablet 1000 MG PO (09:40)
[2021-01-06 10:00] VITALS: PULSE 68; RESP 16; O2SAT 99
[2021-01-06] MEDS: Loperamide 2 MG Capsule PO (10:04)
[2021-01-06 10:50] LABS: Bedside Glucose 111 mg/dL (70-110)
[2021-01-06 14:49] VITALS: BP 88/53; PULSE 75; RESP 17; TEMP 36.1; O2SAT 97
[2021-01-06] MEDS: Pivot 1.5 Cal 1,000 ML 100 ML GT (17:52)
--- NOTE | 2021-01-06 19:01 | NURSING ---
Notified Dr. Shepard of patient's GJ tube clogged. Dr. Shepard stated to consult general surgery.
--- NOTE | 2021-01-06 19:02 | NURSING ---
Contacted Dr Salas the railroad commissioner general surgeon. Received orders to start an IV and run 0.9% NS at 75/hr and contact general surgery in the am.
[2021-01-06 19:11] LABS: Bedside Glucose 85 mg/dL (70-110)
[2021-01-06] MEDS: 0.9% Normal Saline 1,000 ML 75 ML IV (20:50)
[2021-01-06] MEDS: Doxepin Hydrochloride 10 MG Capsule PO (20:52)
[2021-01-06] MEDS: Atorvastatin Calcium 10 MG Tablet PO (20:52)
[2021-01-06 22:01] LABS: Bedside Glucose 85 mg/dL (70-110)
[2021-01-07 06:16] VITALS: BP 106/61; PULSE 98; RESP 16; TEMP 36.7; O2SAT 98
[2021-01-07] MEDS: Pantoprazole Sodium 40 MG Tablet PO (06:18)
[2021-01-07] MEDS: APIXABAN 5 MG TABLET PO (06:18)
[2021-01-07] MEDS: Menthol/Lanolin/Calamine/Znox 113 GM Tube 1 APPLIC TOPICAL (06:19)
[2021-01-07 06:20] VITALS: PULSE 98
[2021-01-07] MEDS: Metoprolol Tartrate 50 MG Tablet PO (06:20)
[2021-01-07 06:21] LABS: Anion Gap 4 (5-15); BUN 19 mg/dL (7-18); BUN/Creat Ratio 26.6 RATIO (10-20); Calcium,Total 8.2 mg/dL (8.5-10.1); Chloride 105 mmol/L (98-107); Creatinine, Serum 0.71 mg/dL (0.70-1.30); EST Glomerular Filtration Rate 113 mL/min (>60); Est Glom Filt Rate - Afr Amer 137 mL/min (>60); Estimated Creatinine Clearance 64.95 ml/min; Glucose 89 mg/dL (74-106); Potassium 4.3 mmol/L (3.5-5.1); Sodium Level 136 mmol/L (136-145)
[2021-01-07 06:21] LABS: Bedside Glucose 83 mg/dL (70-110)
[2021-01-07] MEDS: Potassium Chloride Oral Tablet 20 MEQ PO (09:06)
[2021-01-07] MEDS: Iron Polysaccharide Complex 150 MG CAPSULE PO (09:06)
[2021-01-07] MEDS: 0.9% Normal Saline 1,000 ML 75 ML IV (09:07)
[2021-01-07 11:10] LABS: Bedside Glucose 88 mg/dL (70-110)
--- NOTE | 2021-01-07 12:27 | NURSING ---
Addendum entered by Dona Tobar 01/07/21 14:24: Spoke with Dr Joshua (covering for Dr Lowe). He would like us to transport him to [facility] ED so they can change his GJ tube. Dr Shepard here and aware of disposition of resident. Will call transportation to transport him to the ED. Addendum entered by Dona Tobar 01/07/21 13:36: Dr Nelson Lowe office called at #[phone] and report given to nurse about status of GJ tube. They state Dr Lowe is out of office and they will let airfreight operations agent doctor know and he will call us back. Addendum entered by Dona Tobar 01/07/21 12:41: Dr Shepard updated. Tube is still draining stomach contents at this time. Original Note: Dr Salas in to see resident. Unable to unclog his GJ tube. Orders given by her to transfer resident to [facility] to his surgeon.
--- NOTE | 2021-01-07 12:45 | PCM.PN.BLA ---
Progress Note Called by nurses for clogged jejunostomy tube. This tubing is combined with a gastrostomy drainage tube. This was placed after gastrectomy at [facility] on 12/14/2020. The patient states that he wondered if the tubing was flushed properly after being used last evening. He states that he has not had problems with it in over a week. I attempted to declog tubing but was unsuccessful as I do not have the proper instrumentation to pass through the tubing. (the decloggers in this hospital are too flexible and not stiff enough and also too large in diameter) Patient will have to return to [facility].
--- NOTE | 2021-01-07 14:37 | PCM.DC.SUM ---
Providers Date of Admission: 12/21/20 Primary Care Physician: Dr. 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): Status: Acute Code(s): C49.A0 - Gastrointestinal stromal tumor, unspecified site (5) Alcohol dependence: Status: Acute Code(s): F10.20 - Alcohol dependence, uncomplicated (6) Hypertension: Status: Chronic Code(s): I10 - Essential (primary) hypertension (7) Gastroesophageal reflux disease: Status: Acute Code(s): K21.9 - Gastro-esophageal reflux disease without esophagitis (8) Hyperlipidemia: Status: Acute Code(s): E78.5 - Hyperlipidemia, unspecified (9) Atrial fibrillation: Status: Acute Code(s): I48.91 - Unspecified atrial fibrillation Medications at Discharge Home Medications metoprolol tartrate 50 mg PO BID 10/26/20 diphenhydramine HCl 50 mg PO QHS 12/08/20 apixaban 5 mg PO BID 12/21/20 nutritional supplements [Peptamen 1.5] 110 ml FEEDING TUBE QHS 12/21/20 oxycodone 5 mg PO Q6H PRN 12/21/20 pantoprazole 40 mg PO DAILY 12/21/20 simvastatin 20 mg PO QPM 12/21/20 Hospital Course Operations - (partial gastrectomy with GJ tube placement) Procedures None Summary of Care Provided Minutes Spent on Discharge: 30 Hospital Course: 80 year old male with below past medical history hospitalized for gastric outlet obstruction, underwent partial gastrectomy with GJ tube placement, biopsy showed GIST, admitted to TCU with debility, here for rehabilitation, strengthening, prior to discharge home alone. 01/07/2021 GJ tube not flushing. General Surgery attempted to open tube with wire, unsuccessful. 01/07/2021 Discharge to [facility] for GJ tube replacement. Physical Exam Const alert and oriented x3 General Appearance: cooperative HEENT normocephalic Eyes PERRL and EOMs intact bilaterally Neck supple, no JVD and no carotid bruits Resp normal respiratory effort, normal air movement and clear to auscultation bilaterally Cardio regular rate and regular rhythm GI normal to inspection, nondistended, normoactive bowel sounds, non-tender and non-distended GI Narrative: GJ tube. Extremity normal capillary refill General Extremity: Negative for edema Skin no rashes or lesions noted General Skin Exam: no breakdown Psych affect normal Appearance: appropriate Medical Records Data Medical Nutrition Assessment Dietitian: Nutrition Therapy Diagnosis Start: 12/29/20 09:49 Freq: Status: Active Protocol: Document 01/05/21 12:39 [facility] (Rec: 01/05/21 12:39 [facility] [id number]) Nutrition Malnutrition Evidence of Malnutrition Exists Yes Malnutrition (severe): Chronic Evidenced By Suboptimal Energy Intake ( Severe),Weight Loss (Severe), Physical Changes (Severe) Clinical Problem Acute Disease or Injury Related Malnutrition Etiology related to gastric mass and receiving nutrition via G/J tube Signs/Symptoms as evidenced by 8.7% wt loss X 1 wk, variable po intake of full liquid diet and not accepting of ONS as ordered, and fat/muscle loss (orbital, temporal, clavicle protrusion, arm/leg muscle/fat loss) Status Active Problem Recommendation Dietitian Recommendations/Changes Rec change to Pivot 1.5 at goal rate 100 ml/hr x 14 hrs with 175 ml free water flush every 4 hours to provide ~ 2100 sha/131 gm pro/ 2100 ml free water/day. Will continue oral nutrition supplements w/ meals for increased sha/pro intake if consumed Check wts Tues/Thurs/Sat Weight / BMI Weight Weight: 76.657 kg Body Mass Index (BMI) 24.4 ABG / Lab / Microbiology Data Result Diagrams: 01/05/21 05:17 01/07/21 05:05 Laboratory: Laboratory Results - last 24 hr 01/06/21 16:26: POC Glucose 85 01/06/21 21:49: POC Glucose 85 01/07/21 05:05: Sodium 136, Potassium 4.3, Chloride 105, Carbon Dioxide 27.0, Anion Gap 4 L, BUN 19 H, Creatinine 0.71, Estim Creat Clear Calc 64.95, Est GFR (MDRD) Af Amer 137, Est GFR (MDRD) Non-Af 113, BUN/Creatinine Ratio 26.6 H, Glucose 89, Calcium 8.2 L 01/07/21 06:11: POC Glucose 83 01/07/21 10:53: POC Glucose 88 D/C Instructions Discharge Diet: - (Full liquid, Pivot at night.) Discharge Activity: Return to Normal Activity, May Shower and Use Walker Weight Bearing Status: Weight bearing as tolerated Call your doctor if you observe: Fever of 101 or Higher, Inability to urinate, Inability to have a bowel movement, Shortness of breath, Fainting spells, Swelling in the ankles, Chest pain, Prolonged hiccupping and Uncontrolled pain Additional Instructions: 01/07/2021 Discharge to [facility] for GJ tube replacement. Please Follow Up With: Austyn Lowe MD When: As scheduled. Meaningful Use Info Meaningful Use Diagnoses (Choose all that apply): None applicable Discharge Plan Admission Admit Date/Time: 12/21/20 17:30 Primary Reason for Your Visit: Debility. Attending Provider: Rafael Shepard Chi Primary Care Provider: Milan Chakraborty Consulting Providers: Jaclyn Salas Instructions Patient Instructions: ED Chest Pain, Noncardiac Additional Instructions / Restrictions: 01/07/2021 Discharge to [facility] for GJ tube replacement. Discharge Orders/Prescriptions Prescriptions: No Action metoprolol tartrate 50 mg tablet 50 mg PO BID RF: 0 diphenhydramine HCl 50 mg Tablet 50 mg PO QHS RF: 0 Peptamen 1.5 Liquid 110 ml feeding tube QHS RF: 0 oxycodone 5 mg Capsule 5 mg PO Q6H PRN (Reason: Pain) RF: 0 pantoprazole 40 mg tablet,delayed release (DR/EC) 40 mg PO DAILY RF: 0 simvastatin 20 mg tablet 20 mg PO QPM RF: 0 apixaban 5 mg tablet 5 mg PO BID RF: 0 Referrals / Follow Up: Milan Chakraborty DO [Primary Care Provider] - Disposition Disposition (needs filled in before D/C Order can be placed): Acute [facility] Hospital
--- NOTE | 2021-01-07 15:07 | NURSING ---
[facility] ambulance here to transport resident to [facility]. Report called to RN there.
[2021-01-07 15:18] VITALS: BP 96/52; PULSE 89; RESP 17; TEMP 36.2; O2SAT 97
--- NOTE | 2021-01-08 01:05 | PCA ---
Patient is BETTY no care was provided on shift foreman.
--- NOTE | 2021-01-08 13:49 | NURSING ---
Pt's daughter was here earlier in the day and reported at that time that the pt was not going to be going to surgery today and it may be Sunday or Sunday until he got back here to TCU. Contact made w/KANDICE Roblero, who was going to call pt's daughter to clarify questions regarding return to TCU. Annika notified TCU this afternoon that pt's daughter reports pt is now going to surgery today and may possibly be transferred back to TCU today or tomorrow. While here, daughter Arielle took pt's wallet, laptop, tablet, 2 books, and 2 charging cords per pt's request up to [facility] so he would have them.
--- NOTE | 2021-01-08 19:41 | CM.ED ---
KANDICE Note Referral Source: Regulo from [facility] Referral Reason: Patient's daughter, Arielle, wanted to speak to a certified social workers in health care. Arielle agreed to a phone call. Her number is [phone] Kandice had spoken to Regulo who stated that Arielle wanted to speak to certified social workers in health care. Arielle agreed to have KANDICE call her back. KANDICE called Arielle. Arielle reports that her dad is at [facility] and is having surgery so he should return to [facility] today. Arielle said that this occurred since Arielle had spoken to Regulo. Arielle asked this filing writer to update [facility] and this filing writer agreed. Arielle reports that patient has cancer and she is inquiring why it is taking 16 weeks to get into oncology. She said that she works in the medical field and feels that patient, her father, is not taking his cancer and medical condition seriously and is only concerned about if he has diarrhea. Arielle said that she would like a Care Team meeting and know what patient's diagnosis is. Arielle said that she is HCPOA. Arielle said that she also feels that patient needs something for depression. Arielle said that patient vents on me as he was so independent and used to playing golf 4 days a week and being with the dog. Arielle said that patient feels he is locked up but understands he is not truly locked up. Arielle said that she feels that patient is not adjusting well as he was very independent and now needs someone to help him with his clothes and wash him and that's hard on him. Arielle said that she feels patient is mentally not coping with this life adjustment. Arielle said that she feels that she is patient's yelling board. Arielle requested that staff speak to patient about his adjustment to his current medical state and inquire about benefit of depression medication. KANDICE called [facility] and advised that Arielle reported that patient was in surgery and may return to [facility] today. Plan: To be determined Annika MORA
--- NOTE | 2021-01-08 22:33 | HP.PCM_ITS ---
[facility] - General General Date of Admission: 12/21/20 HPI Narrative 12/08/2020 TARIK RIVERA, is a 80 Male who presents to [facility] Emergency Department with abdominal pain. Abdominal pain x 2 weeks, nausea, vomiting, inability to digest foods. CT abdomen/pelvis showed 5cm x 3.7cm mass lower region of pylorus with marked degree of gastric dilation with residual fluid, food particles. NG tube placed. Transfer to [facility] for further care. 12/08/2020 Admit to [facility]. Increasing nausea, vomiting, he had to stand up to digest food. Gastric emptying test abnormal. NPO, IV fluids. Consult GI for EGD, biopsy of pyloric mass. Tube feed for nutrition. 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 12/11/2020 Interventional radiology NG tube placement. 12/14/2020 Laparoscopic partial gastrectomy with gastrojejunostomy and gastrojejunostomy tube placement. Tube feed via J portion of GJ tube. G portion clamped, but maybe put to suction for nausea. PRN pain, nausea control. PPI twice daily. 12/21/2020 Admit to TCU with debility, here for rehabilitation, strengthening, prior to discharge home alone.01/0701/07/2021 Resident GJ tube clogged, unable to flush. General Surgery consulted, attempted to unclog GJ tube with wire, unsuccessful. 01/07/2021 Transfer to [facility]. 01/08/2021 GJ tube replaced. 01/08/2021 Admit to TCU with debility, here for rehabilitation, strengthening, prior to discharge home. [facility] Medical History Alcohol use Cancer Cardiology follow-up encounter Essential hypertension Former smoker Gastric reflux High cholesterol History of edema History of rheumatic fever History of stress test Hx of echocardiogram Hyperlipemia Paroxysmal A-fib Shortness of breath on exertion Wears glasses Wears hearing aid Weight loss Home Medications metoprolol tartrate 50 mg PO BID 10/26/20 [History Last Taken 11/03/20] diphenhydramine HCl 50 mg PO QHS 12/08/20 [History Last Taken Unknown] apixaban 5 mg PO BID 12/21/20 [History Last Taken Unknown] nutritional supplements [Peptamen 1.5] 110 ml FEEDING TUBE QHS 12/21/20 [History Last Taken Unknown] oxycodone 5 mg PO Q6H PRN 12/21/20 [History Last Taken Unknown] pantoprazole 40 mg PO BID 12/21/20 [History Last Taken Unknown] simvastatin 20 mg PO QPM 12/21/20 [History Last Taken Unknown] Allergy/AdvReac Type Severity Reaction Status Date / Time No Known Allergies Allergy Verified 12/30/20 14:27 Family History Father Heart disease Mother Heart disease Sister Breast cancer Brother CVA (cerebral vascular accident) Surgical History Cataracts, bilateral History of bilateral hip replacements History of endoscopy (~11/2020) History of partial gastrectomy History of right knee joint replacement history of right testicle removed History of tonsillectomy Normal colonoscopy Social History Smoking Status: Former smoker how long ago did patient quit smokin years ago alcohol intake: former details: Quit in May 2020 substance use type: does not use caffeine: No what type of physical activity do you participate in: walking, bicycling and weight training frequency: 3-4 times per week ROS Constitutional Constitutional: Denies chills, fever(s) or weight gain ENT HEENT: Denies headache(s), nasal congestion or nasal discharge Cardiovascular Cardiovascular: Denies chest pain or palpitations Respiratory/Chest Respiratory/Chest: Denies cough, excessive phlegm production or shortness of breath with exertion Gastrointestinal Gastrointestinal: Denies abdominal pain, nausea or vomiting Genitourinary Genitourinary: Denies dysuria Musculoskeletal Musculoskeletal: Denies joint pain or joint swelling Integumentary Integumentary: Denies rash or wounds Neurologic Neurologic: Denies focal weakness, numbness or tingling Psychiatric Psychiatric: Reports auditory hallucinations; Denies anxiety, depression, homicidal ideation or suicidal ideation Vital Signs Vital Signs Vital Signs: Weight Weight: 76.657 kg Body Mass Index (BMI) 24.4 Physical Exam Const alert and oriented x3 General Appearance: cooperative HEENT normocephalic Eyes PERRL and EOMs intact bilaterally Neck supple, no JVD and no carotid bruits Resp normal respiratory effort, normal air movement and clear to auscultation bilaterally Cardio regular rate and regular rhythm GI normal to inspection, nondistended, normoactive bowel sounds, non-tender and non-distended GI Narrative: GJ tube. Extremity normal capillary refill General Extremity: Negative for edema Skin no rashes or lesions noted General Skin Exam: no breakdown Psych affect normal Appearance: appropriate Results Medical Records Data Medical Nutrition Assessment Dietitian: Nutrition Therapy Diagnosis Start: 12/29/20 09:49 Freq: Status: Active Protocol: Document 01/05/21 12:39 [facility] (Rec: 01/05/21 12:39 [facility] [id number]) Nutrition Malnutrition Evidence of Malnutrition Exists Yes Malnutrition (severe): Chronic Evidenced By Suboptimal Energy Intake ( Severe),Weight Loss (Severe), Physical Changes (Severe) Clinical Problem Acute Disease or Injury Related Malnutrition Etiology related to gastric mass and receiving nutrition via G/J tube Signs/Symptoms as evidenced by 8.7% wt loss X 1 wk, variable po intake of full liquid diet and not accepting of ONS as ordered, and fat/muscle loss (orbital, temporal, clavicle protrusion, arm/leg muscle/fat loss) Status Active Problem Recommendation Dietitian Recommendations/Changes Rec change to Pivot 1.5 at goal rate 100 ml/hr x 14 hrs with 175 ml free water flush every 4 hours to provide ~ 2100 sha/131 gm pro/ 2100 ml free water/day. Will continue oral nutrition supplements w/ meals for increased sha/pro intake if consumed Check wts Tues/Thurs/Sat Lab / Micro Data Result Diagrams: 01/09/21 04:30 01/09/21 04:30 Assessment & Plan Assessment/Plan (1) Debility: (2) Gastric outlet obstruction: (3) Gastrointestinal stromal tumor (GIST): (4) Alcohol dependence: (5) Hypertension: (6) Gastroesophageal reflux disease: (7) Hyperlipidemia: (8) Atrial fibrillation: PLAN: 80 year old male with gastrointestinal stromal tumor, underwent partial gastrectomy, gastrojejunostomy tube, tube clogged 01/07/2021, replaced 01/08/2021, admitted to TCU with debility, here for rehabilitation, strengthening, prior to discharge home. Debility - PT/OT. Pain - Tylenol 1000MG Q6H PRN pain (1-5), Oxycodone 5MG Q6H PRN pain (6-10). Bowel - Miralax 17GM daily, Senna/colace 1 tablet twice daily, Dulcolax 10MG daily PRN. Adult immunization - Administer prevnar 13, pneumovax 23, Fluzone, COVID19 vaccine as appropriate. DVT prophylaxis - Not necessary, already on Eliquis. Atrial Fibrillation - Metoprolol 50MG twice daily, Eliquis 5MG twice daily. Hyperlipidemia - Atorvastatin 10MG QHS. Insomnia - Doxepin 10mg QHS. GERD - Pantoprazole 40MG twice daily. Nutrition - Pivot 1.5 1000ML QHS, also on regular diet. GIST tumor - Dr. Larose for adjuvant therapy as outpatient.
[2021-01-08 22:35] LABS: Bedside Glucose 83 mg/dL (70-110)
[2021-01-08 23:00] VITALS: PULSE 86; RESP 16; O2SAT 95
--- NOTE | 2021-01-08 23:15 | NURSING ---
Redness w/ small amount drainage around tube site, cleansed and applied split gauze. Small pressure sore to coccyx w/ mepilex in place. Wound to left arm, patient says it's where he pulled off a bandaid and tore his skin, DSD in place, he refuses to allow dressing to be removed for assesment.
[2021-01-08 23:51] VITALS: BP 100/58; PULSE 86
[2021-01-08 23:59] VITALS: PULSE 86
[2021-01-08] MEDS: Metoprolol Tartrate 50 MG Tablet PO (23:59)
[2021-01-08] MEDS: APIXABAN 5 MG TABLET PO (23:59)
[2021-01-09 02:56] VITALS: BP 120/66; PULSE 86; RESP 17; TEMP 36.4; O2SAT 96
[2021-01-09 04:54] LABS: Absolute Lymphocyte Count 1.92 X10^3/uL (0.83-4.51); Absolute Neutrophil Count 3.4 X10^3/uL (2.0-7.7); Basophil# 0.04 X10^3/uL; Basophil% 0.6 % (0-1); Eosinophil# 0.22 X10^3/uL; Eosinophils% 3.6 % (0-5); Hematocrit 32.5 % (40-54); Hemoglobin 9.9 g/dL (13.0-16.5); Lymphocyte # 1.92 X10^3/ul (0.83-4.51); Lymphocyte % 31.2 % (19-41); Mean Corp Hgb Conc 30.5 g/dL (32-36); Mean Corpuscular Hgb 26.8 pg (27.0-32.0); Mean Corpuscular Volume 87.8 fL (80-94); Mean Platelet Vol. 8.1 fl (6.2-12.0); Monocyte# 0.47 X10^3/uL; Monocyte% 7.6 % (0-10); NRBC Flagged by Analyzer 0 % (0-5); Neutrophil # 3.44 X10^3/uL (2.7-7.7); Neutrophil % 55.9 % (47-70); Platelet Count 429 K/mm3 (150-450); RBC Distribution Width CV 15.6 % (11.6-14.6); RBC Distribution Width SD 49.7 fl (35.1-43.9); White Blood Count 6.2 K/mm3 (4.4-11.0)
[2021-01-09 05:00] VITALS: BP 101/58; PULSE 93; RESP 16; TEMP 36.3; O2SAT 94
[2021-01-09 05:10] LABS: Anion Gap 5 (5-15); BUN 16 mg/dL (7-18); BUN/Creat Ratio 18.7 RATIO (10-20); Chloride 104 mmol/L (98-107); Creatinine, Serum 0.85 mg/dL (0.70-1.30); EST Glomerular Filtration Rate 92 mL/min (>60); Est Glom Filt Rate - Afr Amer 111 mL/min (>60); Estimated Creatinine Clearance 76.41 ml/min; Glucose 137 mg/dL (74-106); Potassium 4.2 mmol/L (3.5-5.1); Sodium Level 136 mmol/L (136-145)
[2021-01-09 06:21] VITALS: PULSE 93
[2021-01-09] MEDS: Metoprolol Tartrate 50 MG Tablet PO ×2 (06:21→17:39)
[2021-01-09] MEDS: APIXABAN 5 MG TABLET PO ×2 (06:22→17:39)
[2021-01-09] MEDS: Pantoprazole Sodium 40 MG Tablet PO ×2 (06:22→17:38)
[2021-01-09 06:26] LABS: Bedside Glucose 160 mg/dL (70-110)
[2021-01-09] MEDS: Iron Polysaccharide Complex 150 MG CAPSULE PO (08:56)
[2021-01-09] MEDS: Loperamide 2 MG Capsule PO (09:26)
[2021-01-09 10:51] LABS: Bedside Glucose 118 mg/dL (70-110)
[2021-01-09 14:44] VITALS: BP 105/51; PULSE 113; RESP 18; TEMP 36.1; O2SAT 99
[2021-01-09 16:01] LABS: Bedside Glucose 99 mg/dL (70-110)
[2021-01-09 17:39] VITALS: BP 100/53; PULSE 101
[2021-01-09] MEDS: Atorvastatin Calcium 10 MG Tablet PO ×2 (20:34)
[2021-01-09] MEDS: Doxepin Hydrochloride 10 MG Capsule PO (20:34)
[2021-01-09] MEDS: Pivot 1.5 Cal 1,000 ML 100 ML GT ×2 (20:47)
[2021-01-09 21:41] LABS: Bedside Glucose 121 mg/dL (70-110)
[2021-01-10 05:59] VITALS: BP 102/58; PULSE 90; RESP 18; TEMP 36.4; O2SAT 97
[2021-01-10 06:02] VITALS: PULSE 90
[2021-01-10] MEDS: Metoprolol Tartrate 50 MG Tablet PO ×2 (06:02→17:42)
[2021-01-10] MEDS: Pantoprazole Sodium 40 MG Tablet PO ×2 (06:02→17:41)
[2021-01-10] MEDS: APIXABAN 5 MG TABLET PO ×2 (06:03→17:41)
[2021-01-10] MEDS: Pivot 1.5 Cal 1,000 ML 100 ML GT ×2 (06:03→20:04)
[2021-01-10 06:36] LABS: Bedside Glucose 126 mg/dL (70-110)
[2021-01-10] MEDS: Iron Polysaccharide Complex 150 MG CAPSULE PO (07:43)
--- NOTE | 2021-01-10 10:33 | NURSING ---
Resting in bed. Talking on phone. Unhooked from tube feed at this time.
--- NOTE | 2021-01-10 10:44 | NURSING ---
Resident states his sister will take him to appointment with surgeon and to cancel physicians ambulette.
[2021-01-10 10:46] LABS: Bedside Glucose 101 mg/dL (70-110)
--- NOTE | 2021-01-10 11:33 | NURSING ---
Addendum entered by Dona Tobar 01/10/21 11:45: Dr Watson's office calls back and state that Dr Watson will check resident on sunday at appointment and then decide how long he wants him on tube feedings. Original Note: Message left with clinical textile designs sales representative at Dr Watson office on how long he would like resident to continue on tube feedings. They state they will get message to surgeon and call us back. Numer left for return phone call.
--- NOTE | 2021-01-10 11:47 | NURSING ---
Dr Larose's office called about F/U with resident. Dr Larose would like him to recover a bit before he sees him next. F/U scheduled for Jan 25, 2021 at 10:00. He would like a CBC done prior to visit. One currently schedule for Jan,.
[2021-01-10 14:08] VITALS: BP 94/56; PULSE 95; RESP 20; TEMP 36.4; O2SAT 93
--- NOTE | 2021-01-10 15:15 | CASEMGMT ---
Social Work SW received message from weekend SW that pt dgt Arielle is expressing concerns about pt emotional well being and concern for medical issues. SW met with pt in his room. Discussed diagnosis and pt feelings surrounding this. Pt able to appropriately verbalize feelings and discuss frustration with the unknown but also able to express comfort in knowing he has upcoming doctor appointments in which he will get answers. Emotional support provided and SW spoke with pt about depression related to current life circumstances and discussed pt's thoughts on medication to assist with mood stabilization. Pt denies need for medication at this time. SW did inform pt that his daughter had spoke with the weekend SW and was inquiring about pt. Pt stating that SW should leave it alone. When asked to clarify, pt states that if Arielle calls this KANDICE, KANDICE may talk to her. But he does not want SW to call Arielle with updates. Pt clearly states that he will be the one making his health care decisions. KANDICE affirmed to pt that all health care decisions would be up to him. SW will remain available for further needs and support. LESLIE Barrientos
[2021-01-10 16:00] LABS: Bedside Glucose 96 mg/dL (70-110)
[2021-01-10 17:42] VITALS: BP 107/47; PULSE 70
[2021-01-10] MEDS: Atorvastatin Calcium 10 MG Tablet PO (20:17)
[2021-01-10] MEDS: Doxepin Hydrochloride 10 MG Capsule PO (20:18)
[2021-01-10 21:36] LABS: Bedside Glucose 121 mg/dL (70-110)
[2021-01-11 04:45] VITALS: BP 96/58; PULSE 66; RESP 14; TEMP 36.7; O2SAT 98
[2021-01-11] MEDS: Pivot 1.5 Cal 1,000 ML 100 ML GT ×2 (04:48→21:23)
[2021-01-11] MEDS: Pantoprazole Sodium 40 MG Tablet PO ×2 (04:49→17:05)
[2021-01-11] MEDS: APIXABAN 5 MG TABLET PO ×2 (04:50→17:05)
[2021-01-11 04:54] VITALS: BP 100/55; PULSE 74
[2021-01-11] MEDS: Metoprolol Tartrate 50 MG Tablet PO ×2 (04:54→17:05)
[2021-01-11 06:26] LABS: Bedside Glucose 135 mg/dL (70-110)
[2021-01-11] MEDS: Iron Polysaccharide Complex 150 MG CAPSULE PO (08:27)
[2021-01-11 11:06] LABS: Bedside Glucose 97 mg/dL (70-110)
[2021-01-11 14:24] VITALS: BP 101/53; PULSE 81; RESP 18; TEMP 36; O2SAT 97
[2021-01-11 16:01] LABS: Bedside Glucose 101 mg/dL (70-110)
[2021-01-11 17:05] VITALS: BP 101/53; PULSE 81
[2021-01-11] MEDS: Loperamide 2 MG Capsule PO (17:07)
[2021-01-11] MEDS: Atorvastatin Calcium 10 MG Tablet PO (21:29)
[2021-01-11] MEDS: Doxepin Hydrochloride 10 MG Capsule PO (21:29)
[2021-01-11 22:01] LABS: Bedside Glucose 97 mg/dL (70-110)
[2021-01-12] MEDS: Pantoprazole Sodium 40 MG Tablet PO ×2 (06:03→17:33)
[2021-01-12] MEDS: Pivot 1.5 Cal 1,000 ML 100 ML GT ×2 (06:03→23:05)
[2021-01-12] MEDS: APIXABAN 5 MG TABLET PO ×2 (06:03→17:34)
[2021-01-12 06:04] VITALS: BP 92/58; PULSE 106
[2021-01-12 06:31] LABS: Bedside Glucose 106 mg/dL (70-110)
[2021-01-12 07:27] VITALS: BP 97/58; PULSE 106; RESP 14; TEMP 36.6; O2SAT 98
[2021-01-12] MEDS: Iron Polysaccharide Complex 150 MG CAPSULE PO (08:58)
[2021-01-12 16:00] VITALS: BP 106/58; PULSE 65; RESP 16; TEMP 36.4; O2SAT 93
[2021-01-12 17:06] LABS: Bedside Glucose 98 mg/dL (70-110)
[2021-01-12 17:33] VITALS: BP 106/58; PULSE 65
[2021-01-12] MEDS: Metoprolol Tartrate 50 MG Tablet PO (17:33)
[2021-01-12 21:56] LABS: Bedside Glucose 91 mg/dL (70-110)
[2021-01-12] MEDS: Atorvastatin Calcium 10 MG Tablet PO (22:50)
[2021-01-12] MEDS: Doxepin Hydrochloride 10 MG Capsule PO (22:51)
[2021-01-13 04:50] VITALS: BP 109/56; PULSE 69
[2021-01-13] MEDS: Metoprolol Tartrate 50 MG Tablet PO ×2 (04:50→17:41)
[2021-01-13] MEDS: Pantoprazole Sodium 40 MG Tablet PO ×2 (04:50→17:42)
[2021-01-13] MEDS: APIXABAN 5 MG TABLET PO ×2 (04:50→17:42)
[2021-01-13 04:56] VITALS: BP 109/56; PULSE 69; RESP 16; TEMP 36.4; O2SAT 98
[2021-01-13 06:31] LABS: Bedside Glucose 128 mg/dL (70-110)
[2021-01-13] MEDS: Iron Polysaccharide Complex 150 MG CAPSULE PO (08:38)
[2021-01-13 11:11] LABS: Bedside Glucose 95 mg/dL (70-110)
[2021-01-13] MEDS: Loperamide 2 MG Capsule PO (13:11)
[2021-01-13 14:59] VITALS: BP 97/55; PULSE 111; RESP 17; TEMP 36.6; O2SAT 99
[2021-01-13 16:31] LABS: Bedside Glucose 90 mg/dL (70-110)
[2021-01-13 17:41] VITALS: PULSE 111
[2021-01-13 19:57] VITALS: PULSE 88; RESP 16; O2SAT 95
[2021-01-13] MEDS: Pivot 1.5 Cal 1,000 ML 100 ML GT (21:14)
[2021-01-13] MEDS: Atorvastatin Calcium 10 MG Tablet PO (21:19)
[2021-01-13] MEDS: Doxepin Hydrochloride 10 MG Capsule PO (21:19)
[2021-01-13 21:45] LABS: Bedside Glucose 112 mg/dL (70-110)
[2021-01-14 05:00] VITALS: BP 96/52; PULSE 80; RESP 16; TEMP 36.3; O2SAT 94
[2021-01-14] MEDS: Pantoprazole Sodium 40 MG Tablet PO ×2 (05:53→17:57)
[2021-01-14] MEDS: APIXABAN 5 MG TABLET PO ×2 (05:53→17:57)
[2021-01-14 06:26] LABS: Bedside Glucose 128 mg/dL (70-110)
[2021-01-14 09:23] VITALS: BP 102/58; PULSE 82
[2021-01-14] MEDS: Iron Polysaccharide Complex 150 MG CAPSULE PO (09:23)
[2021-01-14] MEDS: Metoprolol Tartrate 50 MG Tablet PO ×2 (09:23→17:57)
[2021-01-14 11:06] LABS: Bedside Glucose 100 mg/dL (70-110)
[2021-01-14 14:17] VITALS: BP 107/57; PULSE 82; RESP 16; TEMP 36.3; O2SAT 99
[2021-01-14 16:51] LABS: Bedside Glucose 84 mg/dL (70-110)
[2021-01-14 17:57] VITALS: BP 107/57; PULSE 82
[2021-01-14] MEDS: Pivot 1.5 Cal 1,000 ML 50 ML GT (18:55)
[2021-01-14] MEDS: Doxepin Hydrochloride 10 MG Capsule PO (22:24)
[2021-01-14] MEDS: Atorvastatin Calcium 10 MG Tablet PO (22:24)
[2021-01-14 22:45] LABS: Bedside Glucose 94 mg/dL (70-110)
[2021-01-15] MEDS: APIXABAN 5 MG TABLET PO ×2 (06:13→17:10)
[2021-01-15] MEDS: Pantoprazole Sodium 40 MG Tablet PO ×2 (06:14→17:10)
[2021-01-15 06:31] LABS: Bedside Glucose 109 mg/dL (70-110)
[2021-01-15 06:39] VITALS: BP 98/49; PULSE 77; RESP 14; TEMP 36.6; O2SAT 95
[2021-01-15 07:18] VITALS: BP 98/49
[2021-01-15] MEDS: Iron Polysaccharide Complex 150 MG CAPSULE PO (07:57)
[2021-01-15 11:05] LABS: Bedside Glucose 110 mg/dL (70-110)
[2021-01-15 14:09] VITALS: BP 94/58; PULSE 68; RESP 16; TEMP 36.6; O2SAT 99
[2021-01-15 16:25] LABS: Bedside Glucose 91 mg/dL (70-110)
[2021-01-15] MEDS: Pivot 1.5 Cal 1,000 ML 50 ML GT (19:46)
[2021-01-15 22:31] LABS: Bedside Glucose 116 mg/dL (70-110)
[2021-01-15] MEDS: Doxepin Hydrochloride 10 MG Capsule PO (22:35)
[2021-01-15] MEDS: Atorvastatin Calcium 10 MG Tablet PO (22:35)
[2021-01-16 00:20] VITALS: PULSE 86; RESP 14
[2021-01-16 04:03] VITALS: BP 126/81; PULSE 91
[2021-01-16] MEDS: Metoprolol Tartrate 50 MG Tablet PO (04:03)
[2021-01-16] MEDS: APIXABAN 5 MG TABLET PO ×2 (04:03→17:43)
[2021-01-16] MEDS: Pantoprazole Sodium 40 MG Tablet PO ×2 (04:04→17:43)
[2021-01-16 05:08] LABS: Absolute Lymphocyte Count 3.17 X10^3/uL (0.83-4.51); Absolute Neutrophil Count 9.5 X10^3/uL (2.0-7.7); Basophil# 0.05 X10^3/uL; Basophil% 0.4 % (0-1); Eosinophil# 0.13 X10^3/uL; Eosinophils% 0.9 % (0-5); Hematocrit 27.7 % (40-54); Hemoglobin 8.8 g/dL (13.0-16.5); Lymphocyte # 3.17 X10^3/ul (0.83-4.51); Mean Corp Hgb Conc 31.8 g/dL (32-36); Mean Corpuscular Hgb 26.9 pg (27.0-32.0); Mean Corpuscular Volume 84.7 fL (80-94); Mean Platelet Vol. 8.3 fl (6.2-12.0); Monocyte# 0.89 X10^3/uL; Monocyte% 6.5 % (0-10); NRBC Flagged by Analyzer 0 % (0-5); Neutrophil # 9.48 X10^3/uL (2.7-7.7); Neutrophil % 68.8 % (47-70); Platelet Count 336 K/mm3 (150-450); RBC Distribution Width CV 15.8 % (11.6-14.6); RBC Distribution Width SD 49.4 fl (35.1-43.9); Red Blood Count 3.27 M/mm3 (4.6-6.2); White Blood Count 13.8 K/mm3 (4.4-11.0)
[2021-01-16 06:25] LABS: Bedside Glucose 119 mg/dL (70-110)
[2021-01-16 06:42] LABS: Anion Gap 7 (5-15); BUN 26 mg/dL (7-18); BUN/Creat Ratio 31.8 RATIO (10-20); Calcium,Total 7.8 mg/dL (8.5-10.1); Chloride 98 mmol/L (98-107); Creatinine, Serum 0.82 mg/dL (0.70-1.30); EST Glomerular Filtration Rate 97 mL/min (>60); Est Glom Filt Rate - Afr Amer 117 mL/min (>60); Estimated Creatinine Clearance 78.12 ml/min; Glucose 114 mg/dL (74-106); Potassium 4.1 mmol/L (3.5-5.1); Sodium Level 131 mmol/L (136-145)
[2021-01-16 07:25] VITALS: BP 126/81; PULSE 91; RESP 14; TEMP 36.8; O2SAT 98
[2021-01-16] MEDS: Iron Polysaccharide Complex 150 MG CAPSULE PO (10:59)
[2021-01-16 11:01] LABS: Bedside Glucose 127 mg/dL (70-110)
[2021-01-16] MEDS: Tuberculin,Purif.prot.deriv. 50 TU/ML Vial 0.1 ML ID (11:45)
[2021-01-16 14:25] VITALS: BP 104/49; PULSE 82; RESP 16; TEMP 36.3; O2SAT 97
[2021-01-16 17:01] LABS: Bedside Glucose 97 mg/dL (70-110)
[2021-01-16] MEDS: Pivot 1.5 Cal 1,000 ML 50 ML GT (20:15)
[2021-01-16 21:45] LABS: Bedside Glucose 123 mg/dL (70-110)
[2021-01-16] MEDS: Atorvastatin Calcium 10 MG Tablet PO (22:45)
[2021-01-16] MEDS: Doxepin Hydrochloride 10 MG Capsule PO (22:45)
[2021-01-17 04:29] VITALS: BP 98/65; PULSE 83; RESP 16; TEMP 35.9; O2SAT 95
[2021-01-17 04:32] VITALS: BP 98/65; PULSE 83
[2021-01-17] MEDS: APIXABAN 5 MG TABLET PO ×2 (04:32→18:00)
[2021-01-17] MEDS: Pantoprazole Sodium 40 MG Tablet PO ×2 (04:32→17:59)
[2021-01-17 06:20] LABS: Bedside Glucose 134 mg/dL (70-110)
[2021-01-17] MEDS: Iron Polysaccharide Complex 150 MG CAPSULE PO (09:15)
[2021-01-17 10:46] LABS: Bedside Glucose 112 mg/dL (70-110)
[2021-01-17 13:11] VITALS: BP 95/48; PULSE 89; RESP 16; TEMP 36.2; O2SAT 99
[2021-01-17 16:21] LABS: Bedside Glucose 86 mg/dL (70-110)
[2021-01-17 17:59] VITALS: BP 109/61; PULSE 63
[2021-01-17] MEDS: Metoprolol Tartrate 50 MG Tablet PO (17:59)
[2021-01-17] MEDS: Pivot 1.5 Cal 1,000 ML 50 ML GT (20:45)
[2021-01-17 21:31] LABS: Bedside Glucose 110 mg/dL (70-110)
[2021-01-17] MEDS: Atorvastatin Calcium 10 MG Tablet PO (22:33)
[2021-01-17] MEDS: Doxepin Hydrochloride 10 MG Capsule PO (22:34)
[2021-01-18 06:05] VITALS: BP 105/58; PULSE 78; RESP 16; TEMP 36.4; O2SAT 96
[2021-01-18 06:06] VITALS: BP 105/58; PULSE 78
[2021-01-18] MEDS: Pantoprazole Sodium 40 MG Tablet PO ×2 (06:06→18:22)
[2021-01-18] MEDS: Metoprolol Tartrate 50 MG Tablet PO ×2 (06:06→22:04)
[2021-01-18] MEDS: APIXABAN 5 MG TABLET PO ×2 (06:06→18:21)
[2021-01-18 06:26] LABS: Bedside Glucose 116 mg/dL (70-110)
[2021-01-18] MEDS: Iron Polysaccharide Complex 150 MG CAPSULE PO (09:22)
[2021-01-18 10:56] LABS: Bedside Glucose 128 mg/dL (70-110)
[2021-01-18 15:15] VITALS: BP 91/57; PULSE 71; RESP 16; TEMP 36; O2SAT 98
--- NOTE | 2021-01-18 16:35 | CHAPLAIN ---
Type of Pastoral Visit ___ Initial Visit _x__ Follow-up Visit ___ On-call Visit ___ General Patient Visit ___ Spiritual Assessment ___ Family Conference ___ Bereavement ___ Rapid Response ___ Code Blue ___ Other (describe below) Pastoral Care Referral From _x__ Patient ___ Family ___ Nurse ___ Physician ___ Certified Green Building Engineer ___ Steam Table Attendant ___ Other (describe below) Sacrament/Intervention _x__ Active listening ___ Anointing ___ Anabaptism ___ Bereavement ___ Communion ___ Cha exploration ___ ___ Life review ___ Prayer ___ Reconciliation ___ Sacrament of Sick _x__ Supportive presence ___ Wedding ___ Other (describe below) Pastoral Comments
[2021-01-18 17:00] LABS: Bedside Glucose 91 mg/dL (70-110)
[2021-01-18 18:22] VITALS: BP 108/55; PULSE 76
[2021-01-18 21:00] VITALS: PULSE 89; RESP 16
[2021-01-18 21:36] LABS: Bedside Glucose 94 mg/dL (70-110)
[2021-01-18 22:04] VITALS: BP 106/54; PULSE 89
[2021-01-18] MEDS: Doxepin Hydrochloride 10 MG Capsule PO (22:04)
[2021-01-18] MEDS: Atorvastatin Calcium 10 MG Tablet PO (22:04)
--- NOTE | 2021-01-19 00:04 | NURSING ---
Tube feeds not started before shift change at 7pm, when checked for new bottle not here. Message to pharmacy, new bottle sent, late getting started. Went to flush J-tube, unable to flush w/ multiple attempts. Updated Dr. Dc, no new orders. Patient reports he is eating well at meals, refuses snack this evening.
[2021-01-19 05:22] VITALS: PULSE 87
[2021-01-19] MEDS: Metoprolol Tartrate 50 MG Tablet PO ×2 (05:22→18:31)
[2021-01-19] MEDS: APIXABAN 5 MG TABLET PO ×2 (05:22→18:31)
[2021-01-19] MEDS: Pantoprazole Sodium 40 MG Tablet PO ×2 (05:23→18:32)
[2021-01-19 05:24] VITALS: BP 120/54; PULSE 87
[2021-01-19 06:21] LABS: Bedside Glucose 91 mg/dL (70-110)
[2021-01-19] MEDS: Iron Polysaccharide Complex 150 MG CAPSULE PO (09:27)
[2021-01-19 11:21] LABS: Bedside Glucose 147 mg/dL (70-110)
--- NOTE | 2021-01-19 12:21 | NURSING ---
Addendum entered by Christi Lloyd 01/19/21 17:32: Dr Watson office returned call, states he is leaving GJ tube in x2 more weeks. ok to stop tube feeds since pt eating by mouth. Dr Shepard udpated and wants to hold off on unclogging J tube at this time unless the need arises that pt needs tube feedings again. Original Note: left message with DR Watson regarding G tube clamped and J tube clogged. awaiting on return call from office for further instructions.
[2021-01-19 16:00] VITALS: BP 90/56; PULSE 95; RESP 16; TEMP 36.6; O2SAT 97
--- NOTE | 2021-01-19 16:00 | CASEMGMT ---
Social Work SW met with pt and discussed discharge plan. Pt is doing well with therapy and PT/OT plan to be discontinued on 01/21/21. Pt feels he is functioning well but continues to have medical issues and states he is planning on continuing in the TCU for two more weeks per the recommendations of Dr. Lowe. KANDICE updated team. KANDICE will continue to follow. LESLIE Barrientos
[2021-01-19 17:01] LABS: Bedside Glucose 87 mg/dL (70-110)
[2021-01-19 18:31] VITALS: PULSE 95
[2021-01-19] MEDS: Cephalexin 500 MG Capsule PO (18:31)
[2021-01-19] MEDS: Doxycycline 100 MG CAPSULE PO (18:31)
[2021-01-19 21:41] LABS: Bedside Glucose 98 mg/dL (70-110)
[2021-01-19] MEDS: Atorvastatin Calcium 10 MG Tablet PO (21:51)
[2021-01-19] MEDS: Doxepin Hydrochloride 10 MG Capsule PO (21:52)
[2021-01-19 22:00] VITALS: RESP 14
[2021-01-20 05:08] VITALS: BP 89/50; PULSE 60; RESP 14; TEMP 36.2; O2SAT 99
[2021-01-20] MEDS: APIXABAN 5 MG TABLET PO ×2 (05:14→17:43)
[2021-01-20] MEDS: Pantoprazole Sodium 40 MG Tablet PO ×2 (05:14→17:43)
[2021-01-20] MEDS: Doxycycline 100 MG CAPSULE PO ×2 (05:14→17:43)
[2021-01-20] MEDS: Cephalexin 500 MG Capsule PO ×2 (05:15→17:43)
--- NOTE | 2021-01-20 05:19 | NURSING ---
Pt. requests Lopressor to be given with breakfast medications, due to current blood pressure. Lopressor held at this time.
[2021-01-20 05:21] VITALS: BP 94/55; PULSE 62
[2021-01-20 06:26] LABS: Bedside Glucose 95 mg/dL (70-110)
[2021-01-20] MEDS: Iron Polysaccharide Complex 150 MG CAPSULE PO (08:19)
--- NOTE | 2021-01-20 09:15 | NURSING ---
Addendum entered by Dona Tobar 01/20/21 12:40: Back from [facility] around 12:10. Transferred to room. Original Note: pt off unit for approved L.O.A. for the day.
[2021-01-20 09:44] VITALS: PULSE 54; RESP 18; O2SAT 92
[2021-01-20 13:38] VITALS: BP 105/65; PULSE 84; RESP 18; TEMP 35.9; O2SAT 97
[2021-01-20 16:05] LABS: Bedside Glucose 85 mg/dL (70-110)
[2021-01-20 17:43] VITALS: PULSE 85
[2021-01-20] MEDS: Metoprolol Tartrate 50 MG Tablet PO (17:43)
[2021-01-20] MEDS: Atorvastatin Calcium 10 MG Tablet PO (21:02)
[2021-01-20] MEDS: Doxepin Hydrochloride 10 MG Capsule PO (21:02)
[2021-01-20] MEDS: Senna/Docusate Sodium 1 Tablet PO (22:21)
[2021-01-20 22:25] LABS: Bedside Glucose 94 mg/dL (70-110)
[2021-01-21 05:01] VITALS: BP 89/51; PULSE 80
[2021-01-21] MEDS: Cephalexin 500 MG Capsule PO ×2 (05:01→16:05)
[2021-01-21] MEDS: Doxycycline 100 MG CAPSULE PO ×2 (05:01→16:05)
[2021-01-21] MEDS: APIXABAN 5 MG TABLET PO ×2 (05:01→16:05)
[2021-01-21] MEDS: Pantoprazole Sodium 40 MG Tablet PO ×2 (05:02→16:06)
[2021-01-21 06:35] LABS: Bedside Glucose 95 mg/dL (70-110)
[2021-01-21] MEDS: Iron Polysaccharide Complex 150 MG CAPSULE PO (08:51)
[2021-01-21] MEDS: Senna/Docusate Sodium 1 Tablet PO (08:53)
[2021-01-21 10:51] LABS: Bedside Glucose 123 mg/dL (70-110)
[2021-01-21 14:14] VITALS: BP 99/56; PULSE 69; RESP 18; TEMP 36.3; O2SAT 98
[2021-01-21 16:03] VITALS: BP 99/56; PULSE 69
[2021-01-21 16:10] LABS: Bedside Glucose 95 mg/dL (70-110)
[2021-01-21 21:00] VITALS: PULSE 62; RESP 14; O2SAT 98
[2021-01-21] MEDS: Atorvastatin Calcium 10 MG Tablet PO (21:31)
[2021-01-21] MEDS: Doxepin Hydrochloride 10 MG Capsule PO (21:31)
[2021-01-22 00:51] LABS: Bedside Glucose 98 mg/dL (70-110)
[2021-01-22 05:08] VITALS: BP 90/54; PULSE 85; RESP 14; O2SAT 97
[2021-01-22] MEDS: APIXABAN 5 MG TABLET PO ×2 (05:13→16:54)
[2021-01-22] MEDS: Cephalexin 500 MG Capsule PO ×2 (05:15→16:53)
[2021-01-22] MEDS: Doxycycline 100 MG CAPSULE PO ×2 (05:15→16:54)
[2021-01-22] MEDS: Pantoprazole Sodium 40 MG Tablet PO ×2 (05:15→16:54)
--- NOTE | 2021-01-22 05:21 | NURSING ---
Lopressor held due to low bp. Pt. states would prefer med to be administered later in the morning. Pharmacy communication completed related to time change.
[2021-01-22 06:26] LABS: Bedside Glucose 107 mg/dL (70-110)
[2021-01-22] MEDS: Iron Polysaccharide Complex 150 MG CAPSULE PO (08:33)
[2021-01-22 08:36] VITALS: BP 98/55; PULSE 71
[2021-01-22 10:37] VITALS: PULSE 70
[2021-01-22 11:06] LABS: Bedside Glucose 119 mg/dL (70-110)
[2021-01-22] MEDS: Menthol/Lanolin/Calamine/Znox 113 GM Tube 1 APPLIC TOPICAL ×2 (13:01→22:16)
[2021-01-22 15:57] LABS: Bedside Glucose 121 mg/dL (70-110)
[2021-01-22 16:00] VITALS: BP 108/58; PULSE 96; RESP 16; TEMP 36.6; O2SAT 98
[2021-01-22] MEDS: Doxepin Hydrochloride 10 MG Capsule PO (22:16)
[2021-01-22] MEDS: Atorvastatin Calcium 10 MG Tablet PO (22:16)
[2021-01-22 22:22] VITALS: BP 106/63; PULSE 71
[2021-01-22 22:36] LABS: Bedside Glucose 93 mg/dL (70-110)
[2021-01-23] MEDS: Doxycycline 100 MG CAPSULE PO ×2 (05:11→16:52)
[2021-01-23] MEDS: APIXABAN 5 MG TABLET PO ×2 (05:11→16:53)
[2021-01-23] MEDS: Cephalexin 500 MG Capsule PO ×2 (05:11→16:53)
[2021-01-23] MEDS: Pantoprazole Sodium 40 MG Tablet PO ×2 (05:11→16:54)
[2021-01-23 06:11] LABS: Absolute Neutrophil Count 3.9 X10^3/uL (2.0-7.7); Basophil# 0.05 X10^3/uL; Basophil% 0.7 % (0-1); Eosinophil# 0.21 X10^3/uL; Eosinophils% 2.8 % (0-5); Hematocrit 29.9 % (40-54); Hemoglobin 9.2 g/dL (13.0-16.5); Lymphocyte % 38.1 % (19-41); Mean Corp Hgb Conc 30.8 g/dL (32-36); Mean Corpuscular Hgb 25.8 pg (27.0-32.0); Mean Corpuscular Volume 83.8 fL (80-94); Mean Platelet Vol. 8.4 fl (6.2-12.0); Monocyte# 0.58 X10^3/uL; Monocyte% 7.6 % (0-10); NRBC Flagged by Analyzer 0 % (0-5); Neutrophil # 3.85 X10^3/uL (2.7-7.7); Neutrophil % 50.4 % (47-70); Platelet Count 292 K/mm3 (150-450); RBC Distribution Width CV 15.8 % (11.6-14.6); RBC Distribution Width SD 47.8 fl (35.1-43.9); Red Blood Count 3.57 M/mm3 (4.6-6.2); White Blood Count 7.6 K/mm3 (4.4-11.0)
[2021-01-23 06:20] LABS: Anion Gap 6 (5-15); BUN 15 mg/dL (7-18); BUN/Creat Ratio 18.4 RATIO (10-20); Calcium,Total 8.4 mg/dL (8.5-10.1); Chloride 102 mmol/L (98-107); Creatinine, Serum 0.82 mg/dL (0.70-1.30); EST Glomerular Filtration Rate 97 mL/min (>60); Est Glom Filt Rate - Afr Amer 117 mL/min (>60); Estimated Creatinine Clearance 77.39 ml/min; Glucose 95 mg/dL (74-106); Potassium 3.9 mmol/L (3.5-5.1); Sodium Level 137 mmol/L (136-145)
[2021-01-23 06:36] LABS: Bedside Glucose 95 mg/dL (70-110)
[2021-01-23 08:01] VITALS: BP 99/63; PULSE 71; RESP 16; O2SAT 99
[2021-01-23] MEDS: Iron Polysaccharide Complex 150 MG CAPSULE PO (08:02)
[2021-01-23 08:03] VITALS: BP 99/63; PULSE 71
[2021-01-23 11:06] LABS: Bedside Glucose 111 mg/dL (70-110)
[2021-01-23 13:32] VITALS: BP 99/54; PULSE 80; RESP 16; TEMP 36.3; O2SAT 97
[2021-01-23 16:06] LABS: Bedside Glucose 109 mg/dL (70-110)
[2021-01-23] MEDS: Menthol/Lanolin/Calamine/Znox 113 GM Tube 1 APPLIC TOPICAL (16:55)
[2021-01-23 20:00] VITALS: PULSE 80; RESP 16; O2SAT 96
[2021-01-23 20:44] VITALS: BP 94/57; PULSE 69
[2021-01-23] MEDS: Doxepin Hydrochloride 10 MG Capsule PO (20:46)
[2021-01-23] MEDS: Atorvastatin Calcium 10 MG Tablet PO (20:46)
[2021-01-23 21:17] LABS: Bedside Glucose 119 mg/dL (70-110)
--- NOTE | 2021-01-24 05:36 | NURSING ---
Declines medications as ordered at this time, offered x3 attempts. states give them to me with breakfast, I want to sleep.
[2021-01-24 06:20] LABS: Bedside Glucose 86 mg/dL (70-110)
[2021-01-24] MEDS: Pantoprazole Sodium 40 MG Tablet PO ×2 (08:16→17:54)
[2021-01-24] MEDS: Doxycycline 100 MG CAPSULE PO ×2 (08:16→17:53)
[2021-01-24] MEDS: Cephalexin 500 MG Capsule PO ×2 (08:16→17:53)
[2021-01-24] MEDS: APIXABAN 5 MG TABLET PO ×2 (08:17→17:54)
[2021-01-24] MEDS: Iron Polysaccharide Complex 150 MG CAPSULE PO (08:17)
[2021-01-24 08:20] VITALS: BP 118/64; PULSE 84
[2021-01-24] MEDS: Metoprolol Tartrate 50 MG Tablet PO (08:20)
[2021-01-24 10:00] VITALS: PULSE 84; RESP 18; O2SAT 96
[2021-01-24 10:50] LABS: Bedside Glucose 105 mg/dL (70-110)
[2021-01-24 14:32] VITALS: BP 111/48; PULSE 81; RESP 16; TEMP 36.2; O2SAT 97
[2021-01-24 16:56] LABS: Bedside Glucose 79 mg/dL (70-110)
[2021-01-24 21:20] LABS: Bedside Glucose 113 mg/dL (70-110)
[2021-01-24 22:01] VITALS: BP 105/54; PULSE 79
[2021-01-24] MEDS: Menthol/Lanolin/Calamine/Znox 113 GM Tube 1 APPLIC TOPICAL (22:01)
[2021-01-24] MEDS: Atorvastatin Calcium 10 MG Tablet PO (22:02)
[2021-01-24] MEDS: Doxepin Hydrochloride 10 MG Capsule PO (22:02)
[2021-01-25] MEDS: Cephalexin 500 MG Capsule PO ×2 (05:29→17:45)
[2021-01-25] MEDS: Doxycycline 100 MG CAPSULE PO ×2 (05:29→17:45)
[2021-01-25] MEDS: APIXABAN 5 MG TABLET PO ×2 (05:30→17:45)
[2021-01-25] MEDS: Pantoprazole Sodium 40 MG Tablet PO ×2 (05:30→17:45)
[2021-01-25] MEDS: Menthol/Lanolin/Calamine/Znox 113 GM Tube 1 APPLIC TOPICAL (05:31)
[2021-01-25] MEDS: Iron Polysaccharide Complex 150 MG CAPSULE PO (07:58)
[2021-01-25 09:02] VITALS: BP 97/56; PULSE 74
--- NOTE | 2021-01-25 09:54 | NURSING ---
pt off unit to dr Thuan martinez at this time via WC
[2021-01-25 11:26] LABS: Bedside Glucose 88 mg/dL (70-110)
--- NOTE | 2021-01-25 14:11 | CASEMGMT ---
Social Work Pt requesting to return home. Pt states he had an appointment with Dr. Larose, oncologist, this morning and a treatment plan for cancer has been set. Pt states he feels well and is functioning well and can return home. Pt has no concern with the current G tube and does not believe he needs a home health nurse to care for this. Pt states he has all needed DME and denies any further needs upon discharge. Discharge Date: 01/26/21 Discharge Disposition: Home alone LESLIE Barrientos
[2021-01-25 15:06] VITALS: BP 88/56; PULSE 86; RESP 16; TEMP 36.2; O2SAT 98
[2021-01-25 15:43] VITALS: BP 105/60; PULSE 75
--- NOTE | 2021-01-25 15:49 | CASEMGMT ---
BIMS and PHQ9 interview completed on this date for MDS assessment. LESLIE Barrientos
--- NOTE | 2021-01-25 21:03 | PCM.DC.SUM ---
Providers Date of Admission: 12/21/20 Primary Care Physician: Dr. 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): Status: Acute Code(s): C49.A0 - Gastrointestinal stromal tumor, unspecified site (4) Alcohol dependence: Status: Acute Code(s): F10.20 - Alcohol dependence, uncomplicated (5) Hypertension: Status: Chronic Code(s): I10 - Essential (primary) hypertension (6) Gastroesophageal reflux disease: Status: Acute Code(s): K21.9 - Gastro-esophageal reflux disease without esophagitis (7) Hyperlipidemia: Status: Acute Code(s): E78.5 - Hyperlipidemia, unspecified (8) Atrial fibrillation: Status: Acute Code(s): I48.91 - Unspecified atrial fibrillation Medications at Discharge Home Medications apixaban 5 mg PO BID 12/21/20 pantoprazole 40 mg PO BID 12/21/20 simvastatin 20 mg PO QPM 12/21/20 doxepin 10 mg PO QHS 30 Days #30 cap 01/25/21 metoprolol tartrate 25 mg PO BID@0800,1999 30 Days #60 tab 01/25/21 polysaccharide iron complex [Ferrex 150] 150 mg PO DAILYCM 30 Days #30 cap 01/25/21 Hospital Course Operations None Procedures - (GJ tube replaced.) Summary of Care Provided Minutes Spent on Discharge: 30 Hospital Course: 80 year old male with gastrointestinal stromal tumor, underwent partial gastrectomy, gastrojejunostomy tube, tube clogged 01/07/2021, replaced 01/08/2021, admitted to TCU with debility, here for rehabilitation, strengthening, prior to discharge home. Discharge home alone 01/26/2021. Physical Exam Const alert and oriented x3 General Appearance: cooperative HEENT normocephalic Eyes PERRL and EOMs intact bilaterally Neck supple, no JVD and no carotid bruits Resp normal respiratory effort, normal air movement and clear to auscultation bilaterally Cardio regular rate and regular rhythm GI normal to inspection, nondistended, normoactive bowel sounds, non-tender and non-distended Extremity normal capillary refill General Extremity: Negative for edema Skin no rashes or lesions noted General Skin Exam: no breakdown Psych affect normal Appearance: appropriate Medical Records Data Medical Nutrition Assessment Dietitian: Malnutrition Criteria Met Start: 12/29/20 09:49 Freq: Status: Active Protocol: Document 01/19/21 15:33 [facility] (Rec: 01/19/21 15:33 [facility] [id number]) Nutrition Malnutrition Evidence of Malnutrition Exists Yes Malnutrition (severe): Chronic Evidenced By Suboptimal Energy Intake ( Moderate),Weight Loss (Severe) ,Physical Changes (Severe) Clinical Problem Acute Disease or Injury Related Malnutrition Etiology related to gastric mass and receiving nutrition via G/J tube -also receiving oral diet Signs/Symptoms as evidenced by 8.7% wt loss X 1 wk, variable po intake of transitional diet and variable acceptance of ONS as ordered, and fat/muscle loss (orbital, temporal, clavicle protrusion , arm/leg muscle/fat loss) Status Active Problem Recommendation Dietitian Recommendations/Changes Will change diet to Regular, Fiber Restricted w/ small portions - continue with ensure enlive w/ all meals and ice cream with lunch and dinner. Check daily weights. Weight / BMI Weight Weight: 75.353 kg Body Mass Index (BMI) 24.4 ABG / Lab / Microbiology Data Result Diagrams: 01/23/21 05:49 01/23/21 05:49 Laboratory: Laboratory Results - last 24 hr 01/24/21 21:10: POC Glucose 113 H 01/25/21 06:16: POC Glucose 88 D/C Instructions Discharge Diet: No restrictions Discharge Activity: Return to Normal Activity Weight Bearing Status: Weight bearing as tolerated Call your doctor if you observe: Fever of 101 or Higher, Inability to urinate, Inability to have a bowel movement, Shortness of breath, Fainting spells, Swelling in the ankles, Chest pain, Prolonged hiccupping and Uncontrolled pain Additional Instructions: Discharge home alone 01/26/2021. Please Follow Up With: Milan Chakraborty DO When: 1 week. Meaningful Use Info Meaningful Use Diagnoses (Choose all that apply): None applicable Discharge Plan Admission Admit Date/Time: 12/21/20 17:30 Primary Reason for Your Visit: Debility. Attending Provider: Rafael Shepard Chi Primary Care Provider: Milan Chakraborty Consulting Providers: Jaclyn Salas Instructions Patient Instructions: ED Chest Pain, Noncardiac Additional Instructions / Restrictions: Discharge home alone 01/26/2021. Discharge Orders/Prescriptions Prescriptions: New polysaccharide iron complex [Ferrex 150] 150 mg iron Capsule 150 mg PO DAILYCM 30 Days Qty: 30 RF: 0 doxepin 10 mg Capsule 10 mg PO QHS 30 Days Qty: 30 RF: 0 metoprolol tartrate 25 mg Tablet 25 mg PO BID@0800,1999 30 Days Qty: 60 RF: 0 Continued pantoprazole 40 mg tablet,delayed release (DR/EC) 40 mg PO BID RF: 0 simvastatin 20 mg tablet 20 mg PO QPM RF: 0 apixaban 5 mg tablet 5 mg PO BID RF: 0 Discontinued metoprolol tartrate 50 mg tablet 50 mg PO BID RF: 0 diphenhydramine HCl 50 mg Tablet 50 mg PO QHS RF: 0 Peptamen 1.5 Liquid 110 ml feeding tube QHS RF: 0 oxycodone 5 mg Capsule 5 mg PO Q6H PRN (Reason: Pain) RF: 0 Referrals / Follow Up: Milan Chakraborty DO [Primary Care Provider] - Won Larose MD [NON-STAFF] - See Referral Note Disposition Disposition (needs filled in before D/C Order can be placed): Home, Self Care
[2021-01-25 21:23] VITALS: BP 102/62; PULSE 78
[2021-01-25] MEDS: Atorvastatin Calcium 10 MG Tablet PO (21:24)
[2021-01-25] MEDS: Doxepin Hydrochloride 10 MG Capsule PO (21:24)
[2021-01-25 22:00] VITALS: PULSE 78; RESP 14
[2021-01-26 06:25] LABS: Bedside Glucose 93 mg/dL (70-110)
[2021-01-26] MEDS: APIXABAN 5 MG TABLET PO (06:51)
[2021-01-26] MEDS: Cephalexin 500 MG Capsule PO (06:51)
[2021-01-26] MEDS: Doxycycline 100 MG CAPSULE PO (06:51)
[2021-01-26] MEDS: Pantoprazole Sodium 40 MG Tablet PO (06:51)
[2021-01-26 09:05] VITALS: BP 100/55; PULSE 82
[2021-01-26] MEDS: Iron Polysaccharide Complex 150 MG CAPSULE PO (09:05)
[2021-01-26 14:19] VITALS: BP 100/57; PULSE 63; RESP 18; TEMP 36.6; O2SAT 100
== END 2021-01-26 12:40 | disposition home or self-care (01) | DRG 949 ==
PROVIDERS: Admitting Provider Family Medicine Geriatric Medicine; PCP Family Medicine; Visit Provider Family Medicine Geriatric Medicine
DX: Z48.815 Encounter for surgical aftercare following surgery on the digestive system (principal); E43 Unspecified severe protein-calorie malnutrition; C49.A0 Gastrointestinal stromal tumor, unspecified site; K31.1 Adult hypertrophic pyloric stenosis; K94.13 Enterostomy malfunction; I10 Essential (primary) hypertension; K21.9 Gastro-esophageal reflux disease without esophagitis; E78.5 Hyperlipidemia, unspecified; I48.0 Paroxysmal atrial fibrillation; F10.20 Alcohol dependence, uncomplicated; Z90.3 Acquired absence of stomach [part of]; Z87.891 Personal history of nicotine dependence; Z79.899 Other long term (current) drug therapy; Z79.01 Long term (current) use of anticoagulants; Z68.24 Body mass index [BMI] 24.0-24.9, adult; Y83.2 Surgical operation with anastomosis, bypass or graft as the cause of abnormal reaction of the patient, or of later complication, without mention of misadventure at the time of the procedure; Y73.3 Surgical instruments, materials and gastroenterology and urology devices (including sutures) associated with adverse incidents
CPT/HCPCS: 36415; 36430; 71046; 74018; 80048; 82962; 85014; 85018; 85025; 86850; 86900; 86901; 86920; 86922; 87493; 97110; 97116; 97162; 97164; 97166; 97168; 97530; 97535; 97802; 97803; J7030; J7040; P9016; A4216; J1940

== ENCOUNTER → 2020-12-30 08:32 | Outpatient (CLI) | payer MEDICARE, BC, SELFPAY ==
[2020-12-22 13:41] VITALS: BMI 24.4
[2020-12-30] VITALS (7 sets, daily range): BP systolic 93–122; BP diastolic 53–70; PULSE 59–110; RESP 16; TEMP 36.4–37.1; O2SAT 96–100; BMI 23.8
[2020-12-30] MEDS: 0.9% NaCl Peripheral Flush Adult/Peds IV (08:48)
[2020-12-30] MEDS: Furosemide 20 MG/2 ML VIAL IV (11:25)
[2020-12-30 17:10] LABS: Bedside Glucose 101 mg/dL (70-110)
[2020-12-30 21:26] LABS: Bedside Glucose 104 mg/dL (70-110)
[2020-12-31 06:25] LABS: Bedside Glucose 111 mg/dL (70-110)
[2020-12-31 11:16] LABS: Bedside Glucose 99 mg/dL (70-110)
== END ==
PROVIDERS: PCP Family Medicine; Referring Provider Family Medicine Geriatric Medicine; Visit Provider Family Medicine Geriatric Medicine
DX: D64.9 Anemia, unspecified (principal); C16.4 Malignant neoplasm of pylorus; Z79.899 Other long term (current) drug therapy
CPT/HCPCS: 36415; 36430; 82962; 86850; 86900; 86901; 86920; 86922; 87493; J7040; P9016; A4216; J1940

== ENCOUNTER → 2021-01-25 11:04 | Outpatient (CLI) | payer MEDICARE, BC, SELFPAY ==
--- NOTE | 2021-01-25 11:08 | RAD_ITS ---
STUDY: X-RAY CHEST REASON FOR EXAM: Male, 80 years old. GASTRIC CANCER TECHNIQUE: PA and lateral views of the chest. COMPARISON: None. FINDINGS: The lungs are clear and expanded. There is no demonstrated pleural abnormality. Left lower lobe granuloma. Normal size heart. Normal mediastinum and diane. Normal visualized pulmonary arteries. Normal visualized aortic arch and descending thoracic aorta. Normal visualized thoracic spine. Normal visualized ribs, clavicles, and shoulders. There is no demonstrated abnormality of the visualized soft tissue structures of the upper abdomen. RAD/Chest PA and Lateral IMPRESSION: No acute cardiopulmonary process identified. Electronically Signed: Ketan Rodriguez MD at 12:10 EDT Tel , Service support ,
== END ==
PROVIDERS: PCP Family Medicine; Referring Provider Internal Medicine Medical Oncology; Visit Provider Internal Medicine Medical Oncology
DX: C49.A0 Gastrointestinal stromal tumor, unspecified site (principal); C16.4 Malignant neoplasm of pylorus
CPT/HCPCS: 71046

== ENCOUNTER → 2021-02-01 13:33 | Outpatient (CLI) | payer MEDICARE, BC, SELFPAY ==
--- NOTE | 2021-02-01 13:34 | CT_ITS ---
INDICATION: re-staging prior to adjuvant therapy EXAMINATION: CT CHEST, ABDOMEN AND PELVIS WITH CONTRAST - CT Chest Abdomen And Pelvis W/ Contrast Injection TECHNIQUE: Helically acquired images were obtained of the chest, abdomen, and pelvis following IV contrast. CTA protocol with 3D reformats were performed. A radiation dose optimization technique was used for this scan. IV Contrast dosage and agent: 100 mL of OMNIPAQUE 300. Oral contrast: None. COMPARISON: 12/08/2020. FINDINGS: CHEST: LUNGS, PLEURA AND LARGE AIRWAYS: No masses, consolidation, or edema. No pleural effusion or thickening. No pneumothorax. THYROID: No pathologic thyroid lesions. HEART AND PERICARDIUM: Heart size is normal. No pericardial effusion. There is a soft tissue density visualized within the right atrium best visualized on axial series 2 image 99 measuring 3.7 x 4.8 x 1.9cm. Extensive atherosclerotic vascular calcifications are seen. VESSELS: Thoracic aorta is not dilated. No aortic dissection. No obvious central pulmonary embolism although this study was not performed with the pulmonary embolism protocol. MEDIASTINUM AND NANCY: Calcified left hilar lymph nodes visualized demonstrating no change, subtle hilar or mediastinal lymph nodes are visualized largest the right low paratracheal seen on axial series 2 image 56 measuring 1.1 cm and in the right hilum seen on axial series 2 image 63 measuring 1.8 cm.Esophagus is unremarkable. No hiatal hernia. BONES: No suspicious lytic or blastic abnormality. ABDOMEN/PELVIS: Percutaneous gastrostomy tube visualized in position, subtle visualization of the tube distal to the balloon with distal tube visualized after the anastomosis suggestive of jejunostomy component of a percutaneous GJ tube. LIVER: Homogeneous. No focal mass. GALLBLADDER AND BILIARY TREE: No calcified gallstones. The gallbladder is distended, no evidence of wall thickening or pericholecystic stranding is seen. No intra- or extrahepatic biliary ductal dilation. PANCREAS: There is a fullness visualized in the tail of the pancreas on axial series 3 image 25 , measuring 2.0 x 2.8 x 2.5 cm that demonstrates increase in size in comparison to the prior study where it was visualized on series 2 image 40. SPLEEN: Normal size without focal cystic or solid mass. ADRENAL GLANDS: No nodules. KIDNEYS AND URETERS: Normal renal size and position. No hydronephrosis. PERITONEUM: No ascites or free air. No other fluid collection. BOWEL: Resection of the distal stomach with the surgical clips indicating the site of the anastomosis, mild small bowel wall thickening visualized most prominent proximally. Scattered areas of small bowel wall thickening visualized. No significant large bowel distention is seen, the appendix is visualized and is unremarkable. Scattered diverticular disease but no evidence of acute diverticulitis. LYMPH NODES: Subtle scattered mesenteric lymph nodes visualized in the right upper quadrant and the diogenes hepatis best visualized on axial series 3 image 41 largest of which measures 1.4 cm. VESSELS: Aorta is non-dilated. URINARY BLADDER: Limited evaluation of the pelvis and urinary bladder due to streak artifact from bilateral hip prosthesis. REPRODUCTIVE ORGANS: Limited evaluation due streaky artifact. ABDOMINAL WALL: No discrete abdominal or pelvic wall hernia. Left inguinal hernia with herniation of omentum. BONES: Degenerative bone changes, no lytic or blastic abnormality. CT/CT Chest, Abd, Pel w/Contrast IMPRESSION: Soft tissue density visualized within the right atrium best visualized on axial series 2 image 99 measuring 3.7 x 4.8 x 1.9cm. This was not seen on the prior study. There is a fullness visualized in the tail of the pancreas was visualized on axial series 3 image 25 that demonstrates slight increase in size in comparison to the prior study where it was visualized on series 2 image 40. Areas of the small bowel wall thickening visualized most prominent in the right upper quadrant in the juxta anastomotic segment. Subtle mesenteric lymph nodes visualized in the right lower quadrant. Distended gallbladder but no evidence of gallbladder wall thickening or pericholecystic stranding. Left inguinal hernia with herniation of omentum. Electronically Signed: Quan Benavides MD at 8:56 EDT Tel , Service support ,
== END ==
PROVIDERS: PCP Family Medicine; Referring Provider Student in an Organized Health Care Education/Training Program; Visit Provider Student in an Organized Health Care Education/Training Program
DX: C16.9 Malignant neoplasm of stomach, unspecified (principal)
CPT/HCPCS: 71260; 74177; Q9967

== ENCOUNTER → 2022-01-25 | Outpatient (CLI) | payer MEDICARE, BC, SELFPAY ==
--- NOTE | 2022-01-25 07:50 | CT_ITS ---
STUDY: CT CHEST, ABDOMEN T PELVIS WITH CONTRAST REASON FOR EXAM: Male, 81 years old. H/o stage IIIa gastric ca, monitoring RADIATION DOSAGE (If Supplied By Facility): CTDIvol = ( 16.203 ) mGy, DLP = ( 1219.05 ) mGycm TECHNIQUE: Transaxial imaging was performed following intravenous administration of Oral and amp; IV Readi-CAT and amp; 100mL Isovue-300. Multiplanar coronal and sagittal images were reformatted. Individualized dose optimization techniques were used for this CT. COMPARISON: Comparison is made with prior study 02/01/2021 and 02/10/2021. FINDINGS: CHEST A right-sided portacatheter is seen with the tip in the superior vena cava. Calcified granuloma in the left lower lobe. Calcified left hilar lymph node. There is no demonstrated pleural abnormality. There are calcifications of the coronary arteries. There are multiple small lymph nodes within the mediastinum, which are normal in size and morphology most compatible with reactive lymph hyperplasia. Normal hilar regions. Normal unenhanced pulmonary arteries. Normal aorta arch and descending thoracic aorta. There are degenerative changes of the thoracic spine. ABDOMEN Normal liver. Mildly distended gallbladder. Minimal amount of pericholecystic fluid. There is a benign calcified granuloma of the spleen. Normal pancreas. Normal bilateral adrenal glands. Normal right kidney. Normal left kidney. Diffuse gastric wall thickening. Surgical clips are seen in the region of the lesser curvature of the stomach. Normal small intestine. There are colonic diverticula consistent with diverticulosis. There is non-visualization of the appendix. There is diffuse atherosclerotic calcification of the abdominal aorta, without a demonstrated aneurysm. Normal inferior vena cava. Normal retroperitoneum. Normal abdominal wall. There are diffuse degenerative changes of the visualized lumbar spine. The patient is status post bilateral hip replacement limiting evaluation of the pelvic structures. PELVIS Normal urinary bladder. There is no pelvic fluid. There is no pelvic lymphadenopathy or mass lesion. There is diffuse atherosclerotic calcification of the pelvic arteries. CT/CT Chest, Abd, Pel w/Contrast IMPRESSION: Status post gastric surgery with diffuse thickening of the gastric wall. Mild dilatation of the gallbladder with the small amount of pericholecystic fluid. Electronically Signed: Edmund Sauceda MD at 8:49 EDT ,
[2022-01-25] MEDS: 0.9% Saline Lock 10 ML Syringe IV (08:20)
== END | disposition home or self-care (01) ==
LOC: CT 07:50
PROVIDERS: PCP Family Medicine; Referring Provider Nurse Practitioner Family; Visit Provider Nurse Practitioner Family
DX: C16.9 Malignant neoplasm of stomach, unspecified (principal)
CPT/HCPCS: 71260; 74177; Q9967; A4216

== ENCOUNTER → 2022-10-23 | Outpatient (CLI) | payer MEDICARE, BC, SELFPAY ==
--- NOTE | 2022-10-23 08:26 | CT_ITS ---
STUDY: CT CHEST, ABDOMEN T PELVIS WITH CONTRAST REASON FOR EXAM: Male, 82 years old. Known gastric carcinoma, restaging RADIATION DOSAGE (If Supplied By Facility): CTDIvol = ( 19.17 ) mGy, DLP = ( 1809.37 ) mGycm TECHNIQUE: Transaxial imaging was performed following intravenous administration of Oral and amp;amp; IV Readi-CAT and amp;amp; 100mL Isovue-300. Multiplanar coronal and sagittal images were reformatted. Individualized dose optimization techniques were used for this CT. COMPARISON: 01/25/2022 FINDINGS: CHEST Stable appearance of a right Port-A-Cath, tip in the distal SVC. Stable low-density right thyroid nodule Lungs are mildly hyperexpanded with stable granulomatous calcifications, no organized infiltrate, effusion, or suspicious noncalcified mass or nodule. Normal heart and pericardium. There are calcifications of the coronary arteries. Stable, subcentimeter in short axis dimension axillary, mediastinal and perihilar lymph nodes. No suspicious new bulky adenopathy noted. Normal unenhanced pulmonary arteries. Normal aorta arch and descending thoracic aorta. There are multi-level degenerative changes of the thoracic spine. ABDOMEN Mild fatty infiltration of liver is noted without a discrete lesion. Normal gallbladder and extrahepatic biliary system. There are multiple benign calcified granulomata of the spleen. Normal pancreas. Normal bilateral adrenal glands. Normal right kidney. Normal left kidney. Evidence of previous partial gastrectomy. There is no perigastric inflammatory change, no suspicious adenopathy in the region of the celiac axis or gastroduodenal region. Oral contrast has passed through the stomach and duodenum into the small intestine suggesting there is no stricture, obstruction or ileus present. Normal small intestine. Scattered sigmoid diverticula without CT evidence of acute diverticulitis. There is non-visualization of the appendix. There is diffuse atherosclerotic calcification of the abdominal aorta, without a demonstrated aneurysm. Normal inferior vena cava. Normal retroperitoneum. Normal abdominal wall. Diffuse degenerative bony changes, no suspicious lytic or blastic lesion. Bilateral hip replacements free of complication PELVIS Normal urinary bladder. There is no pelvic fluid. There is no pelvic lymphadenopathy or mass lesion. Normal visualized pelvic arteries. CT/CT Chest, Abd, Pel w/Contrast IMPRESSION: Stable changes in the stomach consistent with partial gastrectomy. No new suspicious mass identified. No perigastric inflammation or adenopathy. The oral contrast administered to the patient passes through the stomach and into the small bowel without obstruction. No acute pulmonary process, no suspicious axillary, mediastinal, or perihilar adenopathy Mild fatty infiltration of liver without a discrete lesion No free intraperitoneal fluid, air, or suspicious mesenteric or retroperitoneal adenopathy Degenerative bony changes Electronically Signed: Nando Perez MD at 9:32 EDT ,
[2022-10-23] MEDS: 0.9% Saline Lock 10 ML Syringe IV (08:50)
[2022-10-23 09:05] LABS: CREATININE FINGERSTICK 0.9 mg/dL (0.70-1.30); EGFR FINGERSTICK > 60.0000 mL/min (>60)
== END | disposition home or self-care (01) ==
LOC: CT 08:26
PROVIDERS: PCP Family Medicine; Referring Provider Internal Medicine Medical Oncology; Visit Provider Internal Medicine Medical Oncology
DX: C16.4 Malignant neoplasm of pylorus (principal)
CPT/HCPCS: 71260; 74177; Q9967; A4216